=== PATIENT | male | born 1960 | race Caucasian/White ===

== ENCOUNTER 2021-07-18 17:15 | Inpatient (IN) ==
--- NOTE | 2021-07-18 18:02 | Emergency Department Note ---
History of Present Illness General Chief complaint: Referred by Doctor Stated complaint: NEED CHECKED FOR BLOOD CLOT, SHORTNESS OF BREATH Time Seen by Provider: 07/18/21 17:45 History of Present Illness Maximum Pain Intensity: 5 This is a 61-year-old male that presents to the emergency department via private vehicle accompanied by [facility] counselor with complaints of "need checked for blood clot, shortness of breath". Patient notes that about 8 months ago while in [place] he was diagnosed with a DVT to the right lower extremity as well as PE. Patient notes that he was admitted and received IV heparin. He notes that he also underwent procedure to remove clot from the right leg. He states that he was then discharged home on oral Eliquis. He has been compliant with his medication. He has not missed any doses. Patient states that he is currently at [facility] rehabilitation secondary to alcoholism. He last drank alcohol about a week and a half ago. He then states that beginning about 2-4 days ago he began with edema to the right lower extremity. He notes this was identical to how his initial DVT presented. He also notes that over the past few days he has felt exertional dyspnea. He notes that this is also similar to how he felt when he was first diagnosed with a PE/DVT. He was referred here for further evaluation and management. Patient notes his current discomfort in the right lower extremity is a 5/10. No recent trauma or injury. He again denies missing any doses of the Eliquis. Patient notes a history of back surgery, hypertension, and PE/DVT Home Medications Medication Instructions Recorded Confirmed Type albuterol sulfate 90 mcg/actuation 2 puff INHALATION Q4H PRN 07/19/21 07/19/21 History aerosol inhaler amlodipine 5 mg tablet 5 mg PO DAILY 07/19/21 07/19/21 History apixaban 5 mg tablet (Eliquis) 5 mg PO BID 07/19/21 07/19/21 History clonidine HCl 0.1 mg tablet 0.1 mg PO TID PRN 07/19/21 07/19/21 History cyanocobalamin (vitamin B-12) 1,000 mcg PO DAILY 07/19/21 07/19/21 History 1,000 mcg tablet diazepam 5 mg tablet See Rx Instructions .ROUTE .COMPLEX 07/19/21 07/19/21 History diphenhydramine HCl 25 mg capsule 25 mg PO Q6H PRN 07/19/21 07/19/21 History (Benadryl) folic acid 1 mg tablet 1 mg PO DAILY 07/19/21 07/19/21 History gabapentin 400 mg capsule 400 mg PO TID 07/19/21 07/19/21 History hydroxyzine pamoate 50 mg capsule 50 mg PO TID PRN 07/19/21 07/19/21 History lisinopril 10 mg tablet 10 mg PO DAILY 07/19/21 07/19/21 History melatonin 5 mg tablet 5 mg PO HS PRN 07/19/21 07/19/21 History multivitamin 1 tab PO DAILY 07/19/21 07/19/21 History nicotine 14 mg/24 hr daily 14 mg TRANSDERMAL DAILY PRN 07/19/21 07/19/21 History transdermal patch olanzapine 5 mg tablet 5 mg PO DAILY 07/19/21 07/19/21 History omeprazole 20 mg capsule,delayed 20 mg PO DAILY 07/19/21 07/19/21 History release thiamine HCl (vitamin B1) 100 mg 100 mg PO DAILY 07/19/21 07/19/21 History tablet trazodone 100 mg tablet 100 mg PO HS PRN 07/19/21 07/19/21 History venlafaxine 37.5 mg 37.5 mg PO DAILY 07/19/21 07/19/21 History capsule,extended release 24 hr Allergies Allergy/AdvReac Type Severity Reaction Status Date / Time pregabalin [From Lyrica] Allergy Unknown Verified 07/19/21 03:45 Past Med/Surg History Medical History (Updated 07/19/21 @ 05:14 by Dirk Barber MD) Back pain HTN (hypertension) Hx of deep venous thrombosis Hx pulmonary embolism Surgical History Hx of spinal surgery Social History Smoking Status: Heavy tobacco smoker Tobacco Type: Cigarettes Second Hand Exposure: No; Do You Dip or Chew Tobacco: No; Tobacco Cessation Education Requested by Patient: No Hx Alcohol Use: Yes Hx Substance Use: No Preferred Language: Hungarian Communication Ability: Effective Hospital Receptionist Required: No Beliefs That Will Affect Care: None Current Living Situation: Boarding Home Other Information That Helps Us Care for You: No Feels Safe at Home: No Is there a partner from a previous relationship who is making you feel unsafe now?: No Any Concerns about Your Family Situation: No Would You Like to Speak to Someone About Your Situation: No Assistive Devices: None Review of Systems A total of 10 systems reviewed and were otherwise negative Physical Exam Vital Signs Vital Signs - 24 hr 07/18/21 17:18 07/18/21 19:46 07/18/21 21:31 Temperature 37.3 C Temperature Source Oral Pulse Rate 102 H 75 Pulse Rate [Finger] 75 68 Pulse Rhythm Regular Respiratory Rate 18 18 24 Respiratory Effort / Characteristics Non-Labored Spontaneous Non-Labored Spontaneous Respiratory Depth Normal Normal Blood Pressure 166/98 H Blood Pressure [Left Arm] 164/104 H 160/107 H Blood Pressure Mean 120 Blood Pressure Mean [Left Arm] 124 124 Blood Pressure Position [Left Arm] Sitting Sitting Pulse Oximetry 96 96 97 Oxygen Delivery Method Room Air Room Air Sepsis Recent Fever Within 48 Hours No Sepsis New/Unexplained Change in Mental Status N/A Sepsis Action Taken by Nursing No Action Required VITAL SIGNS - Vital signs and nursing notes were reviewed. Hypertensive, otherwise stable. GENERAL -61-year-old male appearing his stated age who is in no acute distress. Communicates well with provider and answers questions appropriately. SKIN -diffuse circumferential edema noted to the right lower extremity most pronounced distal to the right knee. The integument does have a shiny appearance and the integument does have a reddish/purplish hue. The circumference of the right lower extremity is larger than that of the left. HEAD - NC/AT. EYES - Sclera anicteric. NECK - Neck with FROM. No nuchal rigidity. LUNGS - Chest wall symmetric without accessory muscle use, intercostals retractions, or central cyanosis. Normal vesicular breath sounds CTA B/L. No wheezes, rales, or rhonchi appreciated. CARDIAC - RRR with S1/S2. No murmur, rubs, or gallops appreciated. EXTREMITIES - No clubbing or peripheral cyanosis. Skin as above. He is tender throughout the right lower extremity without evidence of neurovascular compromise. Cap refill of all toes of the right lower extremity within normal limits. No fluctuance or evidence of abscess. No lymphangitic streaking. Right dorsalis pedis pulse intact. +5/5 strength noted in UE/LE bilaterally. NEUROLOGIC - Cranial nerves II through XII grossly intact. PSYCH - A&O, and cooperates fully with examiner. Pt is very pleasant and interacts well with examiner. Course Administered Medications Acetaminophen (Acetaminophen 325 Mg Tab) 650 mg PO Q4H PRN PRN Reason: pain/fever Stop: 08/17/21 22:27 Last Admin: 07/19/21 02:26 Dose: 650 mg Documented by: [id number] Amlodipine Besylate (Amlodipine Besylate 5 Mg Tab) 5 mg PO DAILY [facility] Stop: 08/18/21 08:59 Last Admin: 07/19/21 08:04 Dose: 5 mg Documented by: [id number] Cyanocobalamin (Cyanocobalamin (B-12) 500 Mcg Tablet) 1,000 mcg PO DAILY [facility] Stop: 08/18/21 08:59 Last Admin: 07/19/21 08:04 Dose: 1,000 mcg Documented by: [id number] Diazepam (Diazepam 5 Mg Tablet) 5 mg PO TID [facility] Stop: 07/21/21 08:59 Last Admin: 07/19/21 08:03 Dose: 5 mg Documented by: [id number] Enoxaparin Sodium (Enoxaparin Inj 120 Mg/0.8 Ml Syr) 111 mg SQ Q12H [facility] Stop: 08/18/21 08:59 Last Admin: 07/19/21 10:11 Dose: 111 mg Documented by: [id number] Folic Acid (Folic Acid 1 Mg Tab) 1 mg PO DAILY [facility] Stop: 07/30/21 09:01 Last Admin: 07/19/21 08:04 Dose: 1 mg Documented by: [id number] Gabapentin (Gabapentin 400 Mg Cap) 400 mg PO TID [facility] Stop: 08/18/21 08:59 Last Admin: 07/19/21 08:04 Dose: 400 mg Documented by: [id number] Hydroxyzine HCl (Hydroxyzine Hcl 25 Mg Tab) 50 mg PO TID PRN PRN Reason: Anxiety Stop: 08/18/21 05:09 Last Admin: 07/19/21 09:10 Dose: 50 mg Documented by: [id number] Lisinopril (Lisinopril 10 Mg Tab) 10 mg PO DAILY [facility] Stop: 08/18/21 08:59 Last Admin: 07/19/21 08:03 Dose: 10 mg Documented by: [id number] Miscellaneous (Remove Nicoderm Patch) 1 ea N/A QAM [facility] Stop: 08/18/21 08:59 Last Admin: 07/19/21 08:04 Dose: 1 ea Documented by: [id number] Multivitamins (Multivitamin Tab) 1 tab PO DAILY NATHALIE Stop: 08/18/21 08:59 Last Admin: 07/19/21 08:04 Dose: 1 tab Documented by: [id number] Nicotine (Nicotine 14 Mg/24 Hr Patch) 14 mg TD DAILY PRN PRN Reason: Smoking Cessation Stop: 08/18/21 05:45 Last Admin: 07/19/21 08:03 Dose: 14 mg Documented by: [id number] Olanzapine (Olanzapine 5 Mg Tablet) 5 mg PO DAILY [facility] Stop: 08/18/21 08:59 Last Admin: 07/19/21 08:04 Dose: 5 mg Documented by: [id number] Pantoprazole Sodium (Pantoprazole 40 Mg Tab) 40 mg PO DAILY [facility] Stop: 08/18/21 08:59 Last Admin: 07/19/21 08:04 Dose: 40 mg Documented by: [id number] Thiamine HCl (Thiamine Hcl 100 Mg Tab) 100 mg PO DAILY [facility] Stop: 07/30/21 09:01 Last Admin: 07/19/21 08:04 Dose: 100 mg Documented by: [id number] Venlafaxine HCl (Venlafaxine Hcl Xr 37.5 Mg Capxr) 37.5 mg PO DAILY [facility] Stop: 08/18/21 08:59 Last Admin: 07/19/21 08:04 Dose: 37.5 mg Documented by: [id number] Discontinued Medications Acetaminophen (Acetaminophen 500 Mg Tab) 1,000 mg PO ONCE ONE Stop: 07/19/21 08:12 Last Admin: 07/19/21 08:22 Dose: 1,000 mg Documented by: [id number] Albuterol (Albut/Ipratrop 3mg/0.5mg Neb 3 Ml Vial) 3 ml NEB Q8H NATHLAIE; Protocol Stop: 08/18/21 00:14 Last Admin: 07/19/21 00:35 Dose: Not Given Documented by: [id number] Albuterol (Albut/Ipratrop 3mg/0.5mg Neb 3 Ml Vial) 3 ml NEB NOW STA; Protocol Stop: 07/19/21 00:06 Last Admin: 07/19/21 00:33 Dose: 3 ml Documented by: [id number] Albuterol (Albut/Ipratrop 3mg/0.5mg Neb 3 Ml Vial) 3 ml NEB Q8R [facility]; Protocol Stop: 08/18/21 06:59 Last Admin: 07/19/21 07:26 Dose: 3 ml Documented by: [id number] Apixaban (Apixaban 5 Mg Tablet) 5 mg PO NOW STA Stop: 07/18/21 22:11 Last Admin: 07/18/21 22:30 Dose: 5 mg Documented by: [id number] Ioversol (Optiray 320 125ml) 120 ml IV ONCE ONE Stop: 07/18/21 21:09 Last Admin: 07/18/21 21:08 Dose: 120 ml Documented by: [id number] Ketorolac Tromethamine (Ketorolac 30 Mg/Ml Vial) 30 mg IV NOW ONE Stop: 07/19/21 08:11 Last Admin: 07/19/21 08:22 Dose: 30 mg Documented by: [id number] Lorazepam (Lorazepam 0.5 Mg Tab) 0.5 mg PO NOW STA Stop: 07/18/21 23:07 Last Admin: 07/18/21 23:42 Dose: 0.5 mg Documented by: [id number] Morphine Sulfate (Morphine Sulfate 4 Mg/Ml 1 Ml Carp\\Vial) 4 mg IV NOW STA Stop: 07/18/21 20:59 Last Admin: 07/18/21 21:11 Dose: 4 mg Documented by: [id number] Medical Decision Making Laboratory Data Result diagrams: 07/19/21 06:13 07/19/21 06:13 Lab Results 07/18/21 07/18/21 07/18/21 Range/Units 18:10 19:00 19:00 WBC 8.68 (4.8-10.8) K/uL RBC 3.93 L (4.7-6.1) M/uL Hgb 12.5 L (14.0-18.0) g/dL Hct 36.7 L (42-52) % MCV 93.4 (80-100) fL MCH 31.8 (25-34) pg MCHC 34.1 (32-36) g/dL RDW Std Deviation 49.1 H (36.4-46.3) fL RDW Coeff of Meeta 14.2 (11.5-14.5) % Plt Count 304 (130-400) K/uL MPV 8.9 (7.4-10.4) fL Immature Gran % (Auto) 0.3 % Neut % (Auto) 61.9 % Lymph % (Auto) 28.5 % [place] % (Auto) 6.9 % Eos % (Auto) 2.2 % Baso % (Auto) 0.2 % Neut # (Auto) 5.37 (1.4-6.5) K/uL Lymph # (Auto) 2.47 (1.2-3.4) K/uL [place] # (Auto) 0.60 H (0.11-0.59) K/uL Eos # (Auto) 0.19 (0-0.5) K/uL Baso # (Auto) 0.02 (0-0.2) K/uL Immature Gran # (Auto) 0.03 H (0.00-0.02) K/uL PT 10.8 (9.0-12.0) Seconds INR 1.0 (0.9-1.1) APTT 21.5 (21.0-31.0) Seconds PTT Ratio 0.8 Sodium (136-145) mmol/L Potassium (3.5-5.1) mmol/L Chloride (98-107) mmol/L Carbon Dioxide (21-32) mmol/L Anion Gap (3-11) BUN (6-23) mg/dl Creatinine (0.6-1.4) mg/dl Est Cr Clr Drug Dosing ml/min Est GFR ( Amer) ml/min Est GFR (Non-Af Amer) ml/min BUN/Creatinine Ratio (10-20) Glucose (70-99(Fasting)) mg/dl Calcium (8.5-10.1) mg/dl Total Bilirubin (0.2-1.0) mg/dl AST (13-39) U/L ALT (7-52) U/L Alkaline Phosphatase (34-104) U/L Troponin I High Sens (0-20) pg/ml Total Protein (6.0-8.3) gm/dl Albumin (3.4-5.0) gm/dl Globulin (2.5-4.0) gm/dl Albumin/Globulin Ratio (0.9-2) SARS-CoV-2, RNA, NAAT NEGATIVE (NEGATIVE) 07/18/21 Range/Units 19:00 WBC (4.8-10.8) K/uL RBC (4.7-6.1) M/uL Hgb (14.0-18.0) g/dL Hct (42-52) % MCV (80-100) fL MCH (25-34) pg MCHC (32-36) g/dL RDW Std Deviation (36.4-46.3) fL RDW Coeff of Meeta (11.5-14.5) % Plt Count (130-400) K/uL MPV (7.4-10.4) fL Immature Gran % (Auto) % Neut % (Auto) % Lymph % (Auto) % [place] % (Auto) % Eos % (Auto) % Baso % (Auto) % Neut # (Auto) (1.4-6.5) K/uL Lymph # (Auto) (1.2-3.4) K/uL [place] # (Auto) (0.11-0.59) K/uL Eos # (Auto) (0-0.5) K/uL Baso # (Auto) (0-0.2) K/uL Immature Gran # (Auto) (0.00-0.02) K/uL PT (9.0-12.0) Seconds INR (0.9-1.1) APTT (21.0-31.0) Seconds PTT Ratio Sodium 137 (136-145) mmol/L Potassium 3.9 (3.5-5.1) mmol/L Chloride 102 (98-107) mmol/L Carbon Dioxide 23 (21-32) mmol/L Anion Gap 12 H (3-11) BUN 13 (6-23) mg/dl Creatinine 1.07 (0.6-1.4) mg/dl Est Cr Clr Drug Dosing 92.9 ml/min Est GFR ( Amer) 86.4 ml/min Est GFR (Non-Af Amer) 74.5 ml/min BUN/Creatinine Ratio 12.1 (10-20) Glucose 96 (70-99(Fasting)) mg/dl Calcium 9.3 (8.5-10.1) mg/dl Total Bilirubin 0.3 (0.2-1.0) mg/dl AST 21 (13-39) U/L ALT 20 (7-52) U/L Alkaline Phosphatase 94 (34-104) U/L Troponin I High Sens 5.4 (0-20) pg/ml Total Protein 6.9 (6.0-8.3) gm/dl Albumin 4.3 (3.4-5.0) gm/dl Globulin 2.6 (2.5-4.0) gm/dl Albumin/Globulin Ratio 1.7 (0.9-2) SARS-CoV-2, RNA, NAAT (NEGATIVE) Imaging Data Radiologist's Impression: Chest CTA 07/18/21 17:58 CT ANGIOGRAM OF THE CHEST CLINICAL HISTORY: Dyspnea COMPARISON STUDY: No priors. TECHNIQUE: Following the IV administration of 120 cc of Optiray 320, CT angiogram of the chest was performed from the upper abdomen to the thoracic inlet utilizing the pulmonary embolus protocol. Images are reviewed in the axial, sagittal, and coronal planes. 3-D MIPS images are created and assessed. IV contrast was administered without complication. A dose lowering technique was utilized adhering to the principles of ALARA. CT DOSE: 552.60 mGy.cm FINDINGS: Thyroid: Imaged portions of the thyroid gland are normal in size and attenuation. Thoracic aorta: There is mild atherosclerotic calcification of the thoracic aorta, which is normal in caliber and demonstrates 4-vessel variant arch anatomy. There is moderate stenosis of the left subclavian artery below the thoracic outlet seen on image #206. No dissection is seen. Pulmonary vasculature: The pulmonary trunk is normal in caliber. There are no filling defects identified in main, lobar, or segmental pulmonary branches to suggest pulmonary embolus. Heart: The heart is normal in size and without pericardial effusion. There are c oronary artery calcifications. Lungs and pleural spaces: There is no airspace consolidation typical for pneumonia or pleural effusion. Foci of scarring/atelectasis are seen throughout both lungs. The trachea and central airways are clear. Diffuse peribronchial thickening is observed with mucous plugging seen in the lower lobe airways. Mediastinum: There is no mediastinal lymphadenopathy. Vanesa: Clear. Axillae: There is no axillary lymphadenopathy. Upper abdomen: There is a 12 mm ovoid simple cystic lesion in the distal pancreatic body/tail on image #18. Scattered diverticula are noted in the partially imaged left colon. Skeletal structures: No lytic or blastic bony lesions are seen. Intrathecal leads are noted in the lower thoracic spinal canal. Degenerative change is noted in the shoulders and thoracic spine. IMPRESSION: 1. There is no evidence of pulmonary embolus in the main, lobar, or segmental pulmonary arteries. 2. There is no lobar consolidation or pleural effusion. 3. Diffuse peribronchial thickening suggests bronchitis/reactive airway disease. Clinical correlation will be required. 4. There is a 12 mm simple cystic lesion in the distal pancreas, likely representing a sidebranch IPMN. Consider nonemergent/outpatient GI follow-up. 5. Additional findings as above. ACT 112: Negative or not required by law. Electronically signed by: Arik Mathews M.D. 07/18/2021 9:22 PM Venous Doppler Study 07/18/21 17:58 RIGHT LOWER EXTREMITY VENOUS DOPPLER CLINICAL HISTORY: hx dvt 8 months ago, on eliquis, edema x 4days COMPARISON STUDY: No previous studies for comparison. TECHNIQUE: Sonography of the deep venous system of the right lower extremity was performed. Compression and augmentation were evaluated. FINDINGS: Right common femoral vein is patent. Note is made of wall thickening of the right superficial femoral and popliteal veins. This represents nonocclusive thrombus. Although age indeterminate, the appearance favors chronic thrombus. Augmentation was normal. Flow was shown within the deep calf vessels. IMPRESSION: Nonocclusive deep venous thrombus within the right superficial femoral and popliteal veins. Although technically age indeterminate, the appearance favors chronic thrombus. ACT 112: Negative or not required by law. Electronically signed by: Flaco Rodriguez M.D. 07/18/2021 8:36 PM MDM Narrative Patient was seen and evaluated as above in room D09. Review was performed of nursing notes and vital signs. I did review the accompanying documentation as provided by [facility] regarding the patient's medical history and physical examination. After obtaining a thorough history and physical examination the above work up was performed. Patient presents to us today with right lower extremity edema and exertional dyspnea which he notes is new. He notes that he had identical symptoms about 8 months ago when he was first diagnosed with PE/DVT. He notes that he is currently on Eliquis. He notes he has been compliant with this medication and has not missed any doses. The patient does not know the etiology of his PE/DVT 8 months ago. Options of care were discussed with the patient. IV access was established. Labs were drawn. CTA of the chest as well as right lower extremity DVT study ordered. Labs reveal no leukocytosis. Minor anemia noted with hemoglobin of 12.5. There is no emergent metabolic disturbance. Troponin 5.4 and within normal range. COVID testing is negative. Coags are normal. Ultrasound as above. There is comment of a nonocclusive DVT within the right superficial femoral and popliteal veins. Although technically age-indeterminate, the appearance favors chronic thrombus per radiology. Prior to going to the CT suite he noted increasing right lower extremity discomfort. A one-time dose of IV morphine was ordered. CT of the chest does not reveal any evidence of PE. There is comment of diffuse peribronchial thickening suggest bronchitis/reactive airway disease. The patient at this time I do believe would benefit from further evaluation and management in the inpatient setting noting his progressive right lower extremity edema by history over the past few days despite anticoagulant therapy. Case discussed with the attending physician as well as the hospitalist. Pending evaluation by the hospitalist service I did discuss with the hospitalist whether or not they would like me to order the patient's nighttime dose of Eliquis that he is due for at this current time. Hospitalist service had indicated it would be reasonable to proceed with his 5 mg dose as due. I did order him his scheduled 5 mg dose of Eliquis pending evaluation by the hospitalist service. Please refer to further documentation regarding his stay. Counselor from [facility] did provide a contact phone number of [phone] which is the direct nurse line for [facility] if the need would arise. While in the department, I personally reevaluated the patient several times and each time the patient was found to be resting comfortably. EKG was reviewed by myself and found to have artifact which limits fine detail. This appears to be a normal sinus rhythm at a rate of 90 bpm. QTc 455. QRS 70. No ST elevation. No previous for comparison. An order was placed for continuous cardiac monitoring. The monitor shows a rate of 75 with sinus rhythm GCS: 15 In the evaluation and treatment of this patient, the following differential diagnoses were considered: SC, ASC, Dysrhythmia, Angina, Mediastinitis, GERD, Esophagitis, PE, Pneumonia, Bronchitis, Costochondritis, Rib Fracture, Zoster, DVT, among others Impression & Plan DVT (deep venous thrombosis), Edema of right lower extremity, Acute pain of right lower extremity, WOLF (dyspnea on exertion) Discharge Plan Visit Data Chief Complaint: Referred by Doctor Stated Complaint: NEED CHECKED FOR BLOOD CLOT, SHORTNESS OF BREATH ED Provider: Arik Mahoney ED Midlevel Provider: Kartik Hernandez Discharge Problem: DVT (deep venous thrombosis), Edema of right lower extremity, Acute pain of right lower extremity, WOLF (dyspnea on exertion) Patient Disposition: Admitted As Inpatient Condition: Good Discharge Instructions Interventions: ED Discharge Assessment Last Done: 07/18/21 22:53
[2021-07-18 19:28] LABS: Basophils # (auto) 0.02 K/uL (0-0.2); Basophils % (auto) 0.2 %; Eosinophils # (auto) 0.19 K/uL (0-0.5); Eosinophils % (auto) 2.2 %; Hematocrit (blood only) 36.7 % (42-52); Hemoglobin 12.5 g/dL (14.0-18.0); Immature Granulocytes # (auto) 0.03 K/uL (0.00-0.02); Immature Granulocytes % (auto) 0.3 %; Lymphocytes # (auto) 2.47 K/uL (1.2-3.4); Lymphocytes % (auto) 28.5 %; Mean Corpuscular Hemoglobin 31.8 pg (25-34); Mean Corpuscular Hgb Conc 34.1 g/dL (32-36); Mean Corpuscular Volume 93.4 fL (80-100); Mean Platelet Volume 8.9 fL (7.4-10.4); Monocytes % (auto) 6.9 %; Neutrophils # (auto) 5.37 K/uL (1.4-6.5); Neutrophils % (auto) 61.9 %; Partial Thromboplastin Ratio 0.8; Partial Thromboplastin Time 21.5 Seconds (21.0-31.0); Platelet Count 304 K/uL (130-400); Prothrombin Time 10.8 Seconds (9.0-12.0); RDW Coefficient of Variation 14.2 % (11.5-14.5); RDW Standard Deviation 49.1 fL (36.4-46.3); Red Blood Count 3.93 M/uL (4.7-6.1); White Blood Count 8.68 K/uL (4.8-10.8)
[2021-07-18 19:52] LABS: Troponin I High Sensitivity 5.4 pg/ml (0-20)
[2021-07-18 20:35] LABS: Albumin Globulin Ratio 1.7 (0.9-2); Albumin Level 4.3 gm/dl (3.4-5.0); BUN Creatinine Ratio 12.1 (10-20); Bilirubin,Total 0.3 mg/dl (0.2-1.0); Calcium 9.3 mg/dl (8.5-10.1); Creatinine Clr Calc Pharmacy 92.9 ml/min; Est GFR (African American) 86.4 ml/min; Est GFR (Non-African American) 74.5 ml/min; Globulin 2.6 gm/dl (2.5-4.0); Potassium 3.9 mmol/L (3.5-5.1); Total Protein 6.9 gm/dl (6.0-8.3)
--- NOTE | 2021-07-18 20:38 | Ultrasound Report ---
RIGHT LOWER EXTREMITY VENOUS DOPPLER CLINICAL HISTORY: hx dvt 8 months ago, on eliquis, edema x 4days COMPARISON STUDY: No previous studies for comparison. TECHNIQUE: Sonography of the deep venous system of the right lower extremity was performed. Compress ion and augmentation were evaluated. FINDINGS: Right common femoral vein is patent. Note is made of wall thickening of the right superfici al femoral and popliteal veins. This represents nonocclusive thrombus. Although age indeterminate, th e appearance favors chronic thrombus. Augmentation was normal. Flow was shown within the deep calf ve ssels. IMPRESSION: Nonocclusive deep venous thrombus within the right superficial femoral and popliteal vein s. Although technically age indeterminate, the appearance favors chronic thrombus. ACT 112: Negative or not required by law. Electronically signed by: Flaco Rodriguez M.D. 07/18/2021 8:36 PM
[2021-07-18] MEDS ORDERED: MoRPHine SULFATE 4 MG/ML 1 ML CARP\\VIAL IV STA (20:58)
[2021-07-18] MEDS ORDERED: OPTIRAY 320 125ml IV ONE (21:08)
--- NOTE | 2021-07-18 21:24 | CT Scan Report ---
CT ANGIOGRAM OF THE CHEST CLINICAL HISTORY: Dyspnea COMPARISON STUDY: No priors. TECHNIQUE: Following the IV administration of 120 cc of Optiray 320, CT angiogram of the chest was pe rformed from the upper abdomen to the thoracic inlet utilizing the pulmonary embolus protocol. Images are reviewed in the axial, sagittal, and coronal planes. 3-D MIPS images are created and assessed. I V contrast was administered without complication. A dose lowering technique was utilized adhering to the principles of ALARA. CT DOSE: 552.60 mGy.cm FINDINGS: Thyroid: Imaged portions of the thyroid gland are normal in size and attenuation. Thoracic aorta: There is mild atherosclerotic calcification of the thoracic aorta, which is normal in caliber and demonstrates 4-vessel variant arch anatomy. There is moderate stenosis of the left subcl natalya artery below the thoracic outlet seen on image #206. No dissection is seen. Pulmonary vasculature: The pulmonary trunk is normal in caliber. There are no filling defects identif ied in main, lobar, or segmental pulmonary branches to suggest pulmonary embolus. Heart: The heart is normal in size and without pericardial effusion. There are coronary artery calcif ications. Lungs and pleural spaces: There is no airspace consolidation typical for pneumonia or pleural effusio n. Foci of scarring/atelectasis are seen throughout both lungs. The trachea and central airways are c lear. Diffuse peribronchial thickening is observed with mucous plugging seen in the lower lobe airway s. Mediastinum: There is no mediastinal lymphadenopathy. Vanesa: Clear. Axillae: There is no axillary lymphadenopathy. Upper abdomen: There is a 12 mm ovoid simple cystic lesion in the distal pancreatic body/tail on imag e #18. Scattered diverticula are noted in the partially imaged left colon. Skeletal structures: No lytic or blastic bony lesions are seen. Intrathecal leads are noted in the lo wer thoracic spinal canal. Degenerative change is noted in the shoulders and thoracic spine. IMPRESSION: 1. There is no evidence of pulmonary embolus in the main, lobar, or segmental pulmonary arteries. 2. There is no lobar consolidation or pleural effusion. 3. Diffuse peribronchial thickening suggests bronchitis/reactive airway disease. Clinical correlation will be required. 4. 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 Consider nonemergent/outpatient GI follow-up. 5. Additional findings as above. ACT 112: Negative or not required by law. Electronically signed by: Arik Mathews M.D. 07/18/2021 9:22 PM
[2021-07-18] MEDS ORDERED: APIXABAN 5 MG TABLET PO STA (22:10)
--- NOTE | 2021-07-18 22:17 | History & Physical Report ---
Date of Service July 18, 2021 Assessment & Plan (1) DVT (deep venous thrombosis): Plan: Denton is a 61-year-old male with history of prior DVT (~10/2020) on Eliquis, AUD and OUD (per [facility]), anxiety/depression, Montez's esophagus, chronic LBP, and COPD who presented to [facility] for evaluation of right lower extremity swelling over the past 2 to 3 days, found to have evidence of DVT in RLE on ultrasonography. 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 the appearance favors chronic thrombus" -- do not have previous US available for comparison - The sudden-onset of symptoms (new swelling, pain) is concerning for acute, rather than chronic, DVT (though previous burden unknonwn) -- lower suspicion for primary process representing lymphedema, no e/o cellulitis, HF - Regarding his anticoagulation: assuming full compliance with his Eliquis, there is current concern for thrombophilia vs. improper absorption (?). However, stimulus unclear. No injury or reported stasis. No prior h/o VTE or FHX. Last colonoscopy was < 2 years ago (unknown findings, but "needs another one soon") - Pain: acetaminophen, heating pads -- judicious use of opioids with ongoing recovery and valium taper outlined below - s/p receipt of Eliquis 5mg in ED --> Transition to Lovenox 100mg SQ b.i.d. given c/f treatment failure - No family or personal history of VTE prior to 10/2020 -- could consider sending off hypercoagulability labs (2) Shortness of breath: Plan: - Known h/o COPD per [facility]'s file -- patient endorses nursing home h/o tobacco use - CT-Chest NOT demonstrating any PEs; did, however, show: "Diffuse peribronchial thickening suggests bronchitis/reactive airway disease" - Given negative work-up for PEs and stable respiratory status, suspect his reported SOB is more likely acute process atop his known COPD -- possibly induced by viral respiratory process. Doesn't appear to be in active COPD exacerbation - COVID negative in the ED - DuoNebs q8h NATHALIE with q4h PRNs -- ween as indicated - Consider azithromycin/doxycycline and short course of steroids if worsening while here - Monitor need for O2, further respiratory therapies/pulmonary toilet can be added prn - Consider addition of antimuscarinic as outpatient for maintenance if true COPD; unclear what work-up has been done to date (3) Opioid use disorder: Plan: - Reported history of OUD on paperwork from [facility] -- patient reports long h/o hydrocodone use for chronic LBP - No h/o IVDU per patient - s/p self-discontinuation of Suboxone several weeks ago -- now receiving withdrawal treatment via [facility] - Continue Vivitrol taper initiated at [facility] (notes reviewed and are on physical hospital chart): - Valium 5mg q.i.d. x 2 days (completed) - Valium 5mg t.i.d. x 2 days (start 07/19) - Valium 5mg b.i.d. x 2 days - Valium 2.5mg b.i.d. x 2 days - Valium 2.5mg daily x 2 days then STOP (4) Pancreatic cyst: Plan: - CT-Chest incidentally demonstrating "12 mm simple cystic lesion in the distal pancreas, 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" - Consider GI consultation as outpatient for EUS / other imaging to clarify cyst architecture, type (5) Alcohol use disorder: Plan: - Long-term history of alcohol abuse beginning at age 16 -- sober between 12/2020 - 03/2021, then relapsed and began drinking 12 beers daily - Per [facility] chart: last drink was 07/13/21 (2 beers) -- prior to this, was "daily drinking of a few beers the past few weeks, not to the point of getting drunk." - Interested in naltrexone for OUD/AUD -- appreciate management by [facility] - Difficult to appreciate if symptoms noticed on admission (anxiety, tremors) are secondary to BZD withdrawal from ongoing Valium taper and Suboxone withdrawal vs. late EtOH withdrawal -- will start AWSS and can discontinue once more information is collected - Continue thiamine, folic acid, vitamin B12, MVI (6) Anxiety and depression: Plan: - Continue venlafaxine ER 37.5mg daily - Continue trazodone 100mg qHS - Continue Zyprexa 5mg daily - Continue PRNs: hydroxyzine - Hold PRN clonidine for now until withdrawal profile is more clearly elucidated -- low threshold to restart (unclear if this was recently started for withdrawal or he takes PRN at baseline) (7) Barretts esophagus: Plan: - Per files from [facility] -- unclear when he had his last EGD - Pantoprazole 20mg daily substitution while here (8) HTN (hypertension): Plan: - Continue lisinopril (9) Back pain: Plan: - Continue gabapentin Plan: Code: Full code Dispo: PPX: therapeutic Lovenox as above Diet: Regular History of Present Illness Primary Care Provider: NO PCP Denton is a 61-year-old male with history of prior DVT (~10/2020) on Eliquis, AUD and OUD (per [facility]), anxiety/depression, Montez's esophagus, chronic LBP who presented to [facility] for evaluation of right lower extremity swelling over the past 2 to 3 days. He also notes SOB on arrival. Patient is very pleasant; obtaining history was somewhat difficult. Patient reports that over the last 2 days, he has noticed progressively increasing swelling within his right lower extremity. This has been associated with a feeling of tightness and warmness. He denies any injury or falls. He says that he has been having mild shortness of breath since this time. Denies any chest pain or palpitations. Denies any nausea or vomiting. Does endorse a mild cough. Does endorse intermittent chills. Declines feeling sick otherwise. He endorses taking his Eliquis as prescribed without any missed doses (he notes that he takes it "religiously" and would never miss a dose). Of note, approximately 8 months ago patient was diagnosed with a right lower extremity DVT as well as PE. He was admitted briefly, where he received IV heparin and underwent (unconfirmed - based on patient's description) right lower extremity thrombectomy. He is currently at [facility] inpatient rehabilitation. He says that he has a terminal manager history of chronic lower back pain following an accident when he was younger. For maintenance of his pain, he was previously being prescribed high doses of hydrocodone. Approx. 3 years ago, was changed to Suboxone. Approximately 1 month ago, he self discontinued Suboxone.. He reported withdrawal symptomsanxiety, feeling shaky, severe bout of anxiety. He attempted treating the symptoms with alcohol4-5 beers a day. Prior to this though, he denied regular drinking. At this point, last drink was approximately 1.5 to 2 weeks ago. He did report having suicidal ideations during this process. He was admitted to [facility] for further monitoring, treatment, and rehabilitation. He denies SI or HI at present. He is no longer on Suboxone. No personal or family history of clotting prior to the events in 10/2020, which - by report - seem unprovoked. In the ED, patient was found to be hemodynamically stable with blood pressure 170/100, pulse 102. Afebrile. Labs notable for anemia 12.5, INR 1, PTT 21.5, normal lytes/renal function. Doppler right lower extremity demonstrated "nonocclusive deep venous thrombosis within the right superficial femoral and popliteal veins. Although technically age-indeterminate, the appearance favors chronic thrombus." CTA chest, obtained for reports of subjective shortness of breath, did not demonstrate evidence of PE; however, did demonstrate diffuse peribronchial thickening suggestive of bronchitis/reactive airway disease, as well as a 12 mm simple pancreatic cystic lesion, likely corporate representative of IPMN. He was given a single dose of morphine, as well as p.m. dose of Eliquis 5 mg Allergies Allergy/AdvReac Type Severity Reaction Status Date / Time pregabalin [From Lyrica] Allergy Unknown Verified 07/19/21 03:45 Home Medications Medication Instructions Recorded Confirmed Type albuterol sulfate 90 mcg/actuation 2 puff INHALATION Q4H PRN 07/19/21 07/19/21 History aerosol inhaler amlodipine 5 mg tablet 5 mg PO DAILY 07/19/21 07/19/21 History apixaban 5 mg tablet (Eliquis) 5 mg PO BID 07/19/21 07/19/21 History clonidine HCl 0.1 mg tablet 0.1 mg PO TID PRN 07/19/21 07/19/21 History cyanocobalamin (vitamin B-12) 1,000 mcg PO DAILY 07/19/21 07/19/21 History 1,000 mcg tablet diazepam 5 mg tablet See Rx Instructions .ROUTE .COMPLEX 07/19/21 07/19/21 History diphenhydramine HCl 25 mg capsule 25 mg PO Q6H PRN 07/19/21 07/19/21 History (Benadryl) folic acid 1 mg tablet 1 mg PO DAILY 07/19/21 07/19/21 History gabapentin 400 mg capsule 400 mg PO TID 07/19/21 07/19/21 History hydroxyzine pamoate 50 mg capsule 50 mg PO TID PRN 07/19/21 07/19/21 History lisinopril 10 mg tablet 10 mg PO DAILY 07/19/21 07/19/21 History melatonin 5 mg tablet 5 mg PO HS PRN 07/19/21 07/19/21 History multivitamin 1 tab PO DAILY 07/19/21 07/19/21 History nicotine 14 mg/24 hr daily 14 mg TRANSDERMAL DAILY PRN 07/19/21 07/19/21 History transdermal patch olanzapine 5 mg tablet 5 mg PO DAILY 07/19/21 07/19/21 History omeprazole 20 mg capsule,delayed 20 mg PO DAILY 07/19/21 07/19/21 History release thiamine HCl (vitamin B1) 100 mg 100 mg PO DAILY 07/19/21 07/19/21 History tablet trazodone 100 mg tablet 100 mg PO HS PRN 07/19/21 07/19/21 History venlafaxine 37.5 mg 37.5 mg PO DAILY 07/19/21 07/19/21 History capsule,extended release 24 hr Past Med/Surg History Medical History (Updated 07/19/21 @ 05:14 by Dirk Barber MD) Back pain HTN (hypertension) Hx of deep venous thrombosis Hx pulmonary embolism Surgical History Hx of spinal surgery Social History Smoking Status: Heavy tobacco smoker Tobacco Type: Cigarettes Second Hand Exposure: No; Do You Dip or Chew Tobacco: No; Tobacco Cessation Education Requested by Patient: No Hx Alcohol Use: Yes Hx Substance Use: No Preferred Language: Somali Communication Ability: Effective Shaker Flatwork Required: No Beliefs That Will Affect Care: None Current Living Situation: Boarding Home Other Information That Helps Us Care for You: No Feels Safe at Home: No Is there a partner from a previous relationship who is making you feel unsafe now?: No Any Concerns about Your Family Situation: No Would You Like to Speak to Someone About Your Situation: No Assistive Devices: None Review of Systems Review of Systems: as per HPI Physical Exam Physical Exam: General: 61-year old male who is alert, oriented, and appears anxious with bilateral upper extremity tremor. HEENT: NCAT. - Eyes - Sclera are white, anicteric, and without injection. - Mouth - MMM - Neck - supple, no appreciable JVD Cardiac: Normal rate and regular rhythm; S1 and S2 present with no murmurs, rubs, or gallops. Pulmonary: Good respiratory effort with symmetric expansion of the chest. No use of accessory muscles. Diminished lung sounds throughout. Wheezing noted in the bibasilar segments. No crackles. Abdominal: Normoactive bowel sounds. Abdomen was soft, nondistended, and non- tender to palpation. Extremities: Upper and lower extremities are warm and well perfused. Appreciable enlargement of RLE when compared to L side. 1+ pitting edema. DP pulses 2+ bilaterally. Capillary refill < 2 seconds. Ankle strength 5/5. Results & Data Results & Data ([facility]) Vital Signs (Past 12 Hours) Vital Signs Temp Pulse Pulse Resp BP BP Pulse Ox 07/18/21 21:31 68 24 160/107 H 97 07/18/21 19:46 75 75 18 164/104 H 96 07/18/21 17:18 37.3 C 102 H 18 166/98 H 96 Supervising Physician Co-Signing Physician Notes Attending addendum: I have physically seen this patient, have supervised the medical residents activities, and agree with the H&P unless as otherwise noted. Assessment and Plan: Right lower extremity DVT- History of right lower extremity DVT/PE 11/12 Thrombectomy of right lower extremity DVT and treatment with Eliquis 5 mg twice daily Patient reports being compliant with Eliquis, with some which would suggest light Eliquis failure, however, with his coexistent medical issues, it is unclear if he actually remembered to take it on a regular basis Patient has history of opioid use disorder, which he reports was only oral medications, and not injectables. There is still would be concern regarding prescribing Lovenox if this is considered treatment failure Will consult hematology for their opinion COPD/tobacco use/PE history- CTA negative for PE this admission Duonebs every 4 hours while awake and every 2 hours when necessary. Mucinex Azithromycin Avoid use of any potentially addicting substances such as benzodiazepines and narcotics, due to patient's abuse history Remaining orders and notations as noted Resident Activity Tracking Resident Involvement: Resident Care Provided Care Provided: Adult Hospital Medicine
[2021-07-18] MEDS ORDERED: LORazepam 0.5 MG TAB PO STA (23:06)
[2021-07-18] MEDS ORDERED: ALBUT/IPRATROP 3MG/0.5MG NEB 3 ML VIAL NEB PRN (23:08)
[2021-07-19] MEDS ORDERED: LORazepam 2 MG/1 ML VIAL IV PRN ×4 (00:01→17:35)
[2021-07-19] MEDS ORDERED: ALBUT/IPRATROP 3MG/0.5MG NEB 3 ML VIAL NEB PRN (00:05)
[2021-07-19] MEDS ORDERED: ALBUT/IPRATROP 3MG/0.5MG NEB 3 ML VIAL NEB STA (00:05)
[2021-07-19] MEDS ORDERED: ALBUT/IPRATROP 3MG/0.5MG NEB 3 ML VIAL NEB SCH ×2 (00:15→07:00)
[2021-07-19] MEDS: ACETAMINOPHEN 325 MG TAB PO PRN (02:26)
[2021-07-19] MEDS ORDERED: ALBUTEROL HFA 8 GM INHALER INH PRN (05:10)
[2021-07-19] MEDS ORDERED: diphenhydrAMINE Capsule 25 MG CAP PO PRN (05:10)
[2021-07-19] MEDS ORDERED: NICOTINE 14 MG/24 HR PATCH TD PRN (05:46)
[2021-07-19 06:56] LABS: Basophils # (auto) 0.03 K/uL (0-0.2); Basophils % (auto) 0.5 %; Eosinophils # (auto) 0.24 K/uL (0-0.5); Eosinophils % (auto) 3.8 %; Hematocrit (blood only) 37.5 % (42-52); Hemoglobin 12.7 g/dL (14.0-18.0); Immature Granulocytes # (auto) 0.01 K/uL (0.00-0.02); Immature Granulocytes % (auto) 0.2 %; Lymphocytes # (auto) 1.95 K/uL (1.2-3.4); Lymphocytes % (auto) 30.5 %; Mean Corpuscular Hemoglobin 32.6 pg (25-34); Mean Corpuscular Hgb Conc 33.9 g/dL (32-36); Mean Corpuscular Volume 96.4 fL (80-100); Mean Platelet Volume 8.9 fL (7.4-10.4); Monocytes # (auto) 0.56 K/uL (0.11-0.59); Monocytes % (auto) 8.8 %; Neutrophils % (auto) 56.2 %; Platelet Count 297 K/uL (130-400); RDW Coefficient of Variation 14.3 % (11.5-14.5); RDW Standard Deviation 50.9 fL (36.4-46.3); Red Blood Count 3.89 M/uL (4.7-6.1); White Blood Count 6.39 K/uL (4.8-10.8)
[2021-07-19 07:18] LABS: BUN Creatinine Ratio 15.5 (10-20); Calcium 9.3 mg/dl (8.5-10.1); Creatinine Clr Calc Pharmacy 89.9 ml/min; Est GFR (African American) 83.5 ml/min; Est GFR (Non-African American) 72.1 ml/min; Potassium 3.7 mmol/L (3.5-5.1)
[2021-07-19] MEDS: lisinopril 10 MG TAB PO SCH (08:03)
[2021-07-19] MEDS: traZODone HCL 100 MG TAB PO PRN (08:03)
[2021-07-19] MEDS: diazePAM 5 MG TABLET PO SCH ×2 (08:03→13:22)
[2021-07-19] MEDS: OLANZapine 5 MG TABLET PO SCH (08:04)
[2021-07-19] MEDS: CYANOCOBALAMIN (B-12) 500 MCG TABLET PO SCH (08:04)
[2021-07-19] MEDS: MULTIVITAMIN TAB PO SCH (08:04)
[2021-07-19] MEDS: amLODIPine BESYLATE 5 MG TAB PO SCH (08:04)
[2021-07-19] MEDS: PANTOprazole 40 MG TAB PO SCH (08:04)
[2021-07-19] MEDS: FOLIC ACID 1 MG TAB PO SCH (08:04)
[2021-07-19] MEDS: THIAMINE HCL 100 MG TAB PO SCH (08:04)
[2021-07-19] MEDS: VENLAFAXINE HCL XR 37.5 MG CAPXR PO SCH (08:04)
[2021-07-19] MEDS: GABAPENTIN 400 MG CAP PO SCH ×3 (08:04→20:33)
[2021-07-19] MEDS ORDERED: KETOROLAC 30 MG/ML VIAL IV ONE (08:10)
[2021-07-19] MEDS ORDERED: ACETAMINOPHEN 500 MG TAB PO ONE (08:11)
[2021-07-19] MEDS ORDERED: FOLIC ACID 1 MG in SYRINGE 9.8 ML IV SCH (09:00)
[2021-07-19] MEDS ORDERED: THIAMINE HCL 100 MG in SYRINGE 9 ML IV SCH (09:00)
[2021-07-19] MEDS: hydrOXYzine HCl 25 MG TAB PO PRN (09:10)
--- NOTE | 2021-07-19 09:20 | Electrocardiogram Report ---
Test Reason : Blood Pressure : / mmHG Vent. Rate : 090 BPM Atrial Rate : 089 BPM P-R Int : 000 ms QRS Dur : 070 ms QT Int : 372 ms P-R-T Axes : 000 033 074 degrees QTc Int : 455 ms Poor data quality, interpretation may be adversely affected Marked baseline artifact Probable Sinus rhythm Borderline ECG No previous ECGs available Confirmed by Bolivar Hunt ([id number]) on 07/19/2021 9:20:24 AM Referred By: Marco Fitzgerald Confirmed By:Bolivar Hunt
[2021-07-19] MEDS ORDERED: ENOXAPARIN 100 MG/1ML SYR SQ SCH (10:00)
[2021-07-19] MEDS: ENOXAPARIN INJ 120 MG/0.8 ML SYR SQ SCH ×2 (10:11→20:33)
[2021-07-19] MEDS: ALBUTEROL HFA 8 GM INHALER INH SCH ×2 (15:43→22:03)
[2021-07-19] MEDS ORDERED: LORazepam 2 MG/1 ML VIAL IV STA ×2 (15:45→16:19)
--- NOTE | 2021-07-19 16:12 | Hospitalist Progress Note ---
Date of Service July 19, 2021 Assessment & Plan (1) Alcohol withdrawal: Plan: Patient's severe tremors, tachycardia, anxiety, etc all concerning for ongoing etoh withdrawal. If the records are correct he is still going thru withdrawal from etoh as his last documented drink was 07/13/21. Plan - transfer to telemetry; STOP valium; place on alcohol withdrawal protocol with ativan prn; cont gabapentin 400mg TID. Thiamine/folic acid/MVI supplementation. Complicating his etoh withdrawal is likely withdrawal from cessation of suboxone in the last week. I spoke with Dr Suero from psych - asked for her formal assistance in managing his etoh & suboxone withdrawal. (2) Opioid use disorder: Plan: Previous history of hydrocodone use for chronic LBP, followed by suboxone Rx for 4-5 years up until about 1 week ago when he self-discontinued the suboxone abruptly. Likely going through suboxone withdrawal. Consulted psych, Dr Suero, for her assistance with this complicated situation. Stop valium; await further recs from Dr Suero. Place on telemetry. (3) Numbness of right foot: Plan: acute or chronic DVT should not cause such. I believe the numbness is due to #[address] lumbar spine pending; cannot obtain MRI due to spinal cord stimulator device. Gabapentin should help the numbness. (4) Degenerative lumbar spinal stenosis: Plan: known, chronic history of such. this is the reason for prior chronic opiate usage followed by suboxone. CT lumbar spine to r/o large herniated disc, severe spinal stenosis, etc contributing to current RLE symptoms. I suspect that the suboxone was controlling many of his chronic back/RLE symptoms and the abrupt cessation of suboxone is now allowing pain/numbness/etc to break through. (5) Spinal cord stimulator status: (6) Pancreatic cyst: Plan: CT Chest incidentally demonstrating "12 mm simple cystic lesion in the distal pancreas, 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" Will need f/u for such post-d/c (7) Alcohol use disorder: Plan: Long-term history of alcohol abuse beginning at age 16 -- sober between 12/2020 - 03/2021 per records, then relapsed and began drinking 12 beers daily Per [facility]: last drink was 07/13/21 (2 beers) See #1 above (8) Anxiety and depression: Plan: Continue venlafaxine ER 37.5mg daily Continue trazodone 100mg qHS Continue Zyprexa 5mg daily Defer med management to psych given the complexities of his mental health history and substance abuse history (9) Barretts esophagus: Plan: Cont daily PPI (10) HTN (hypertension): Plan: Continue lisinopril (11) Back pain: Plan: Chronic lumbar back pain See above (12) DVT (deep venous thrombosis): Plan: h/o extensive RLE DVTs in 10/2020 per pt's recollection I have requested those records from [facility] in [facility] The current doppler of his RLE suggests the 2 DVTs seen are chronic I am not convinced that his current RLE symptoms are from the DVTs; more concerned it is due to l-spine disease await records in meantime - lovenox 1mg/kg SC BID I reassured him that he has NO PEs and that the DVTs in the leg will receive adequate Rx with lovenox (13) Acute bronchitis: Plan: cont bronchodilators CT chest findings are c/w bronchitis defer on steroids PO/abx for now Plan: change observation to full admission status total care time today 75 minutes including complex care coordination, discussion with psych, reviewing records, etc Admission and Anticipated Discharge Date Admission Date: July 18, 2021 Subjective patient reports that his last etoh use was well over 7-10 days ago HOWEVER, I reviewed the records from [facility] -- he was admitted there on 07/15 after traveling from [place], [place]; last etoh intake per their notes was 07/13. Sober from etoh from 12/2020 to 03/2021 also per the limited records we have. He had been taking suboxone 2-8 twice daily for 4-5 years. STOPPED "cold turkey" sometime in the last week in [place] prompting him to go the hospital there. Prior to that had been on standard opiate therapy for chronic low back pain. Many years ago had surgery on L4/L5, and has had 3 nerve stimulator devices (placement, then replacement, and so forth). He can't recall when the last device was placed. The events that led to him getting to [facility] are quite confusing Sounds like he went to the ER in [place], spent prolonged time in ER, then was "admitted to the medical management area" (?), then psych? His timeline suggests 7-[address] [facility] records suggest it was not that long. Today he is VERY anxious SEVERE tremors throughout the entire encounter States he is having pain from just below the right calf down to the foot He has significant numbness of the entire right foot - this is a chronic problem, but usually it is very mild, and today the numbness is quite severe He reports ongoing edema of right leg and right aguero - worse than baseline He is very anxious about the blood clots reports compliance with Eliquis he has no family ho VTE had RLE DVTs with PEs - unprovoked - 10/2020 in [place] RLE is mildly weak with attempting to walk Review of Systems Review of Systems: gen - felt like he "had the flu" when he stopped suboxone; no fevers/chills currently cv - no chest pain pulm - cough with wheeze & mild dyspnea GI - no vomiting Physical Exam Physical Exam: gen - poor historian, very anxious, severe tremors of all limbs mouth - MMM neck - no JVD heart - tachy, s1 s2, no murmur lungs - mild end-exp wheezes b/l abd - soft NT ND BS+ skin - chronic stasis changes right aguero; cap refill right foot 1 sec musculo - right knee, right ankle, right foot - no synovitis vascular - mild venous stasis of right distal leg & foot psych - anxious, awake, alert Results & Data Results & Data ([facility]) Vital Signs (Past 12 Hours) Vital Signs Temp Pulse Resp BP Pulse Ox 07/19/21 15:45 36.4 C L 87 18 165/89 H 97 07/19/21 15:28 87 16 98 07/19/21 09:27 153/78 H 07/19/21 09:06 175/92 H 07/19/21 07:37 36.8 C 80 20 179/110 H 94 07/19/21 07:26 72 16 96 Laboratory Results labs reviewed - cbc, bmp wnl PG Care Time/CCT Total # of Minutes Spent Total Time Spent with Patient: Total time spent is greater than 50% in coordination of care (as documented) at patient's floor/unit and/or counseling patient: Prolonged Care Time Prolonged Care Time: Yes Total Prolonged Care Time: 75 Coding Level of Care Code 33502 Subseq Hosp Care Lvl 3 (25 - SIGNIFICANT, SEPARATELY IDENTIFIABLE ) Diagnoses Opioid use disorder F11.90 Pancreatic cyst K86.2 Alcohol use disorder Anxiety and depression F41.9; F32.A Barretts esophagus K22.70 HTN (hypertension) I10 Back pain M54.9 Alcohol withdrawal F10.239 DVT (deep venous thrombosis) I82.409 Numbness of right foot R20.0 Spinal cord stimulator status Z96.89 Degenerative lumbar spinal stenosis M48.061 Acute bronchitis J20.9 Additional Codes Prolonged Care Time - Prolonged Care Time: Yes ([id number]) Time Spent (min) 75
[2021-07-19] MEDS ORDERED: DICYCLOMINE HCL 20 MG TAB PO PRN (16:33)
[2021-07-19] MEDS ORDERED: LOPERAMIDE HCL 2 MG CAP PO PRN (16:33)
--- NOTE | 2021-07-19 16:36 | Communication Note ---
Date of Service: July 19, [address] Ramos regarding patient from [facility] being treated for alcohol use withdrawal and he recently self-discontinued his suboxone (8mg BID, total daily 16mg) and was being given symptomatic management at Health system for opioid withdrawal. Reviewed chart and current orders. Will see him tomorrow for formal psych consult. Plan: -AWSS with lorazepam for scoring -Discontinue Valium -Continue gabapentin 400mg TID, trazodone, melatonin, zyprexa and Effexor XR -Will order symptomatic meds for opioid withdrawal: Clonidine 0.1 mg BID prn for goosebumps, irritability, anxiety (hold for SBP<100) , dicyclomine 20mg q6h prn abdominal cramps, loperamide 2mg q6h prn diarrhea
[2021-07-19] MEDS ORDERED: ATIVAN IV ALCOHOL WITHDRAWL IV PRN (17:35)
--- NOTE | 2021-07-19 18:15 | CT Scan Report ---
LUMBAR SPINE CT CT DOSE: 1009.28 mGy.cm HISTORY: R foot numbness, weakness; eval l-spine pathology TECHNIQUE: Multiaxial CT images of the lumbar spine were performed and reformatted in the sagittal an d coronal plane without the use of contrast. A dose lowering technique was utilized adhering to the principles of ALARA. COMPARISON: None. FINDINGS: Mild levoscoliosis. No fracture or subluxation. There is moderate disc space narrowing at L 3-L4 and L5-S1. Mild disc space narrowing at L4-L5. Mild to moderate facet degenerative changes seen within the lumbar spine most pronounced at the L5-S1 level. Partially visualized spinal stimulator le ads are noted within the thoracic region. Small Schmorl's nodes at the L1 level. Moderate central can al narrowing at L4-L5 due to a broad-based posterior disc bulge and ligamentum flavum and facet hyper trophy. Mild central canal narrowing at L2-L3 and L3-L4 also due to broad-based posterior disc bulges and facet hypertrophy. IMPRESSION: 1. No fracture or subluxation within the lumbar spine. 2. Mild levoscoliosis. 3. Mild to moderate degenerative changes as described above. ACT 112: Negative or not required by law. Electronically signed by: Axel Maciel M.D. 07/19/2021 6:13 PM
[2021-07-19] MEDS: LORazepam 1 MG TAB PO PRN ×2 (20:32→23:19)
[2021-07-20] MEDS: LORazepam 1 MG TAB PO PRN ×5 (02:59→20:33)
[2021-07-20] MEDS: MELATONIN 3 MG TAB PO PRN (02:59)
[2021-07-20] MEDS: ACETAMINOPHEN 325 MG TAB PO PRN ×2 (03:00→08:36)
[2021-07-20] MEDS: traZODone HCL 100 MG TAB PO PRN (03:01)
--- NOTE | 2021-07-20 05:44 | Billing Data ---
Date of Service July 20, 2021 Coding Level of Care Code 62906 Initial Inpt Care Lvl 3
[2021-07-20] MEDS: ALBUTEROL HFA 8 GM INHALER INH SCH ×3 (07:47→22:00)
[2021-07-20] MEDS: cloNIDine HCL 0.1 MG TAB PO PRN (08:36)
[2021-07-20] MEDS: hydrOXYzine HCl 25 MG TAB PO PRN ×2 (09:12→22:26)
[2021-07-20] MEDS: NICOTINE 21 MG/24 HR TDSY TD SCH (09:13)
[2021-07-20] MEDS: amLODIPine BESYLATE 5 MG TAB PO SCH (09:48)
[2021-07-20] MEDS: CYANOCOBALAMIN (B-12) 500 MCG TABLET PO SCH (09:48)
[2021-07-20] MEDS: ENOXAPARIN INJ 120 MG/0.8 ML SYR SQ SCH ×2 (09:48→20:22)
[2021-07-20] MEDS: GABAPENTIN 400 MG CAP PO SCH ×3 (09:49→20:22)
[2021-07-20] MEDS: MULTIVITAMIN TAB PO SCH (09:49)
[2021-07-20] MEDS: OLANZapine 5 MG TABLET PO SCH (09:49)
[2021-07-20] MEDS: lisinopril 10 MG TAB PO SCH (09:49)
[2021-07-20] MEDS: FOLIC ACID 1 MG TAB PO SCH (09:49)
[2021-07-20] MEDS: THIAMINE HCL 100 MG TAB PO SCH (09:50)
[2021-07-20] MEDS: VENLAFAXINE HCL XR 37.5 MG CAPXR PO SCH (09:50)
[2021-07-20] MEDS: PANTOprazole 40 MG TAB PO SCH (09:50)
--- NOTE | 2021-07-20 13:28 | Psychiatric Consultation ---
Date of Consultation July 20, 2021 Impression / Recommendations Impression 61 yo admitted medically for DVT after recent discontinuation of suboxone and alcohol withdrawal was being continued on Valium over the last 2 weeks as part of prolonged alcohol withdrawal taper. Diagnostically consistent with alcohol use disorder, no major mood symptoms. Suspect ongoing tremulousness and periods of anxiety are related to Valium taper. Recommended switch to ativan with AWSS for benzo withdrawal as this is safer in someone with history of heavy alcohol use. At this point risk of harm to self and others is low as he denies SI and HI and he remains motivated to return to residential substance use treatment once medically stable. Should be well outside the window for any acute opioid withdrawal side effects at this point and he denies any current symptoms of this. (1) Alcohol use disorder: (2) Benzodiazepine withdrawal: -AWSS with lorazepam for scoring for benzo withdrawal -Continue gabapentin 400mg TID, melatonin, zyprexa and Effexor XR -Will stop trazodone and start mirtazapine to help with sleep-reviewed benefits/alternatives/risks including but not limited to sedation, weight gain and he consented to start this -Has symptomatic meds for opioid withdrawal but unlikely to need any at this point. -Psychiatrically stable to return to [facility] once medically stable Risk Factors Assessment Do You Have Access To A Gun?: No Psych History Identifying Data 61 yo man from [facility] with a history of alcohol use disorder, chronic back pain from lumbar spinal stenosis (most recently on suboxone 8mg BID up until ~3 weeks ago when he self-discontinued), hx DVT and PE admitted medically due to concern for DVT from [facility] residential alcohol use treatment program. Psychiatry was consulted for recommendations regarding his substance use withdrawal and medications. Chief Complaint "Everyone at this hospital has been so helpful and great". History of Present Illness [place] reviewed his history of long period of alcohol use, ~12 pack beer per day for the last ~15 years, and had been on suboxone for about 3-4 years for pain related to chronic lumbar stenosis. About 2-3 weeks ago he decided to stop the suboxone as he no longer wanted to rely on it for pain management nor the frequent appointments required for getting his prescriptions. Unfortunately he experienced quite significant withdrawal side effects and felt "so horribly physically" that he developed SI. He then sought treatment at his local hospital in [facility] and was admitted medically for supervised alcohol withdrawal via Valium and was then continued on Valium during his inpatient psychiatric admission. His mood improved significantly during psychiatric admission and he had not experienced any depression nor SI since that time. He was admitted to [facility] residential substance use program for his alcohol use directly after discharge from [facility]. He cannot recall Effexor by assumes that it must have been started during his inpatient psych admission. He's been on gabapentin for many years for nerve pain and finds this helpful. He's unsure when zyprexa was started but finds it h elpful for anxiety. He feels trazodone, which he's been taking for many years, hasn't been helping much with sleep. Today his mood is stable and euthymic and he denies any psychiatric symptoms other than some anxiety related to being in the hospital. He's tremulous and we review this is likely from the Valium withdrawal. He remains eager to return to [facility] once medically stable to continue his work on achieving sobriety. Past Psychiatric History Outpatient Services: none currently, [facility] will set up as he nears the end of the program Previous Psych Admissions: [facility] about 1 week ago Do You Have Access To A Gun?: No History of Previous Suicide Attempt: No Past Medication Trials: he can't recall Allergies Allergy/AdvReac Type Severity Reaction Status Date / Time pregabalin [From Lyrica] Allergy Unknown Verified 07/19/21 03:45 Home Medications Medication Instructions Recorded Confirmed Type albuterol sulfate 90 mcg/actuation 2 puff INHALATION Q4H PRN 07/19/21 07/19/21 History aerosol inhaler amlodipine 5 mg tablet 5 mg PO DAILY 07/19/21 07/19/21 History apixaban 5 mg tablet (Eliquis) 5 mg PO BID 07/19/21 07/19/21 History clonidine HCl 0.1 mg tablet 0.1 mg PO TID PRN 07/19/21 07/19/21 History cyanocobalamin (vitamin B-12) 1,000 mcg PO DAILY 07/19/21 07/19/21 History 1,000 mcg tablet diazepam 5 mg tablet See Rx Instructions .ROUTE .COMPLEX 07/19/21 07/19/21 History diphenhydramine HCl 25 mg capsule 25 mg PO Q6H PRN 07/19/21 07/19/21 History (Benadryl) folic acid 1 mg tablet 1 mg PO DAILY 07/19/21 07/19/21 History gabapentin 400 mg capsule 400 mg PO TID 07/19/21 07/19/21 History hydroxyzine pamoate 50 mg capsule 50 mg PO TID PRN 07/19/21 07/19/21 History lisinopril 10 mg tablet 10 mg PO DAILY 07/19/21 07/19/21 History melatonin 5 mg tablet 5 mg PO HS PRN 07/19/21 07/19/21 History multivitamin 1 tab PO DAILY 07/19/21 07/19/21 History nicotine 14 mg/24 hr daily 14 mg TRANSDERMAL DAILY PRN 07/19/21 07/19/21 History transdermal patch olanzapine 5 mg tablet 5 mg PO DAILY 07/19/21 07/19/21 History omeprazole 20 mg capsule,delayed 20 mg PO DAILY 07/19/21 07/19/21 History release thiamine HCl (vitamin B1) 100 mg 100 mg PO DAILY 07/19/21 07/19/21 History tablet trazodone 100 mg tablet 100 mg PO HS PRN 07/19/21 07/19/21 History venlafaxine 37.5 mg 37.5 mg PO DAILY 07/19/21 07/19/21 History capsule,extended release 24 hr Substance Abuse History see HPI Personal History Living Arrangements: Apartment ([place]) Employment Status: Disabled Beliefs That Will Affect Care: None Patient History Medical History Back pain HTN (hypertension) Hx of deep venous thrombosis Hx pulmonary embolism Surgical History Hx of spinal surgery Social History Smoking Status: Heavy tobacco smoker Tobacco Type: Cigarettes Second Hand Exposure: No; Do You Dip or Chew Tobacco: No; Tobacco Cessation Education Requested by Patient: No Hx Alcohol Use: Yes Hx Substance Use: No Preferred Language: Swedish Communication Ability: Effective Order Expediter Required: No Beliefs That Will Affect Care: None Current Living Situation: Boarding Home Other Information That Helps Us Care for You: No Feels Safe at Home: No Is there a partner from a previous relationship who is making you feel unsafe now?: No Any Concerns about Your Family Situation: No Would You Like to Speak to Someone About Your Situation: No Assistive Devices: None Physical Exam Psychiatric: Orientation: alert and oriented x 3 (couldn't recall city but not from this area and knew [facility]) Apperance: appropriately dressed and appropriately groomed Eye Contact: good eye contact Motor Behavior: no abnormal motor movements Speech: normal rate/rhythm/volume of speech Affect: euthymic affect Mood: + anxious mood; no depressed mood Thought Process: + circumstantial thought process Thought Content: reality based without delusions Suicidal Thoughts: denies suicidal thoughts Homicidal Thoughts: denies homicidal thoughts Hallucinations: no auditory hallucinations and no visual hallucinations Cognition: attention grossly intact and language grossly intact Estimated Intelligence: consistent with education level Insight: + fair insight Judgement: + fair judgement Vital Signs (Past 24 Hours): Last Vital Signs Temp 36.6 C 07/20/21 12:22 Pulse 98 H 07/20/21 12:22 Resp 18 07/20/21 12:22 BP 137/90 07/20/21 12:22 Pulse Ox 97 07/20/21 12:22 Review of Systems All systems reviewed & are unremarkable except as noted in HPI & below (right leg swelling) Results & Data (PSY) Medications Administered Acetaminophen (Acetaminophen 325 Mg Tab) 650 mg PO Q4H PRN PRN Reason: pain/fever Stop: 08/17/21 22:27 Last Admin: 07/20/21 08:36 Dose: 650 mg Documented by: [id number] Admin: 07/20/21 03:00 Dose: 650 mg Documented by: [id number] Admin: 07/19/21 02:26 Dose: 650 mg Documented by: [id number] Albuterol (Albuterol Hfa 8 Gm Inhaler) 2 puffs INH Q8R [facility]; Protocol Stop: 08/18/21 14:59 Last Admin: 07/20/21 07:47 Dose: 2 puffs Documented by: [id number] Admin: 07/19/21 22:03 Dose: 2 puffs Documented by: [id number] Admin: 07/19/21 15:43 Dose: 2 puffs Documented by: [id number] Amlodipine Besylate (Amlodipine Besylate 5 Mg Tab) 5 mg PO DAILY [facility] Stop: 08/18/21 08:59 Last Admin: 07/20/21 09:48 Dose: 5 mg Documented by: [id number] Admin: 07/19/21 08:04 Dose: 5 mg Documented by: [id number] Clonidine HCl (Clonidine Hcl 0.1 Mg Tab) 0.1 mg PO BID PRN PRN Reason: opioid withdrawal sx Stop: 08/18/21 16:32 Last Admin: 07/20/21 08:36 Dose: 0.1 mg Documented by: [id number] Cyanocobalamin (Cyanocobalamin (B-12) 500 Mcg Tablet) 1,000 mcg PO DAILY NATHALIE Stop: 08/18/21 08:59 Last Admin: 07/20/21 09:48 Dose: 1,000 mcg Documented by: [id number] Admin: 07/19/21 08:04 Dose: 1,000 mcg Documented by: [id number] Enoxaparin Sodium (Enoxaparin Inj 120 Mg/0.8 Ml Syr) 111 mg SQ Q12H NATHALIE Stop: 08/18/21 08:59 Last Admin: 07/20/21 09:48 Dose: 111 mg Documented by: [id number] Admin: 07/19/21 20:33 Dose: 111 mg Documented by: [id number] Admin: 07/19/21 10:11 Dose: 111 mg Documented by: [id number] Folic Acid (Folic Acid 1 Mg Tab) 1 mg PO DAILY NATHALIE Stop: 07/30/21 09:01 Last Admin: 07/20/21 09:49 Dose: 1 mg Documented by: [id number] Admin: 07/19/21 08:04 Dose: 1 mg Documented by: [id number] Gabapentin (Gabapentin 400 Mg Cap) 400 mg PO TID NATHALIE Stop: 08/18/21 08:59 Last Admin: 07/20/21 12:37 Dose: 400 mg Documented by: [id number] Admin: 07/20/21 09:49 Dose: 400 mg Documented by: [id number] Admin: 07/19/21 20:33 Dose: 400 mg Documented by: [id number] Admin: 07/19/21 13:22 Dose: 400 mg Documented by: [id number] Admin: 07/19/21 08:04 Dose: 400 mg Documented by: [id number] Hydroxyzine HCl (Hydroxyzine Hcl 25 Mg Tab) 50 mg PO TID PRN PRN Reason: Anxiety Stop: 08/18/21 05:09 Last Admin: 07/20/21 09:12 Dose: 50 mg Documented by: [id number] Admin: 07/19/21 09:10 Dose: 50 mg Documented by: [id number] Lisinopril (Lisinopril 10 Mg Tab) 10 mg PO DAILY [facility] Stop: 08/18/21 08:59 Last Admin: 07/20/21 09:49 Dose: 10 mg Documented by: [id number] Admin: 07/19/21 08:03 Dose: 10 mg Documented by: [id number] Lorazepam (Lorazepam 1 Mg Tab) 1 - 3 mg PO UD PRN; Protocol PRN Reason: EtoH Withdrawal AWSS 6-10+ Stop: 08/18/21 17:34 Last Admin: 07/20/21 12:37 Dose: 1 mg Documented by: [id number] Admin: 07/20/21 07:31 Dose: 2 mg Documented by: [id number] Admin: 07/20/21 02:59 Dose: 1 mg Documented by: [id number] Admin: 07/19/21 23:19 Dose: 1 mg Documented by: [id number] Admin: 07/19/21 20:32 Dose: 1 mg Documented by: [id number] Melatonin (Melatonin 3 Mg Tab) 3 mg PO HS PRN PRN Reason: Insomnia Stop: 08/18/21 05:44 Last Admin: 07/20/21 02:59 Dose: 3 mg Documented by: [id number] Miscellaneous (Remove Nicoderm Patch) 1 ea N/A QAM [facility] Stop: 08/18/21 08:59 Last Admin: 07/20/21 09:50 Dose: 1 ea Documented by: [id number] Admin: 07/19/21 08:04 Dose: 1 ea Documented by: [id number] Multivitamins (Multivitamin Tab) 1 tab PO DAILY [facility] Stop: 08/18/21 08:59 Last Admin: 07/20/21 09:49 Dose: 1 tab Documented by: [id number] Admin: 07/19/21 08:04 Dose: 1 tab Documented by: [id number] Nicotine (Nicotine 21 Mg/24 Hr Tdsy) 21 mg TD DAILY [facility] Stop: 08/19/21 08:59 Last Admin: 07/20/21 09:13 Dose: 21 mg Documented by: [id number] Olanzapine (Olanzapine 5 Mg Tablet) 5 mg PO DAILY [facility] Stop: 08/18/21 08:59 Last Admin: 07/20/21 09:49 Dose: 5 mg Documented by: [id number] Admin: 07/19/21 08:04 Dose: 5 mg Documented by: [id number] Pantoprazole Sodium (Pantoprazole 40 Mg Tab) 40 mg PO DAILY [facility] Stop: 08/18/21 08:59 Last Admin: 07/20/21 09:50 Dose: 40 mg Documented by: [id number] Admin: 07/19/21 08:04 Dose: 40 mg Documented by: [id number] Thiamine HCl (Thiamine Hcl 100 Mg Tab) 100 mg PO DAILY [facility] Stop: 07/30/21 09:01 Last Admin: 07/20/21 09:50 Dose: 100 mg Documented by: [id number] Admin: 07/19/21 08:04 Dose: 100 mg Documented by: [id number] Trazodone HCl (Trazodone Hcl 100 Mg Tab) 100 mg PO HS PRN PRN Reason: Insomnia Stop: 08/18/21 05:09 Last Admin: 07/20/21 03:01 Dose: 100 mg Documented by: [id number] Venlafaxine HCl (Venlafaxine Hcl Xr 37.5 Mg Capxr) 37.5 mg PO DAILY [facility] Stop: 08/18/21 08:59 Last Admin: 07/20/21 09:50 Dose: 37.5 mg Documented by: [id number] Admin: 07/19/21 08:04 Dose: 37.5 mg Documented by: [id number] Coding Level of Care Code 18798 Inpt Consult Level 3 Diagnoses Alcohol use disorder Benzodiazepine withdrawal F13.239
[2021-07-20] MEDS ORDERED: POTASSIUM CHLORIDE CRTAB 20 MEQ TABCR PO STA (16:58)
[2021-07-20] MEDS ORDERED: FUROSEMIDE 20 MG TAB PO ONE (16:58)
--- NOTE | 2021-07-20 17:00 | Hospitalist Progress Note ---
Date of Service July 20, 2021 Assessment & Plan (1) Alcohol withdrawal: Plan: Per documentation from [facility] his last documented drink was 07/13/21. However, his self-reported timeline would suggest his last drink was 10+ days ago. Tremors could be etoh withdrawal, opiate withdrawal, or benzo withdrawal. Remains on AWSS protocol - ativan via this protocol will help the tremors regardless of etiology. Cont gabapentin 400mg TID. Thiamine/folic acid/MVI supplementation. Appreciate psych consultation & recs from Dr Suero. Continue telemetry. (2) Opioid use disorder: Plan: Previous history of hydrocodone use for chronic LBP, followed by suboxone Rx for 4-5 years up until about 1-2 weeks ago. At that time he self-discontinued the suboxone abruptly. Appreciate recs from Dr Suero. Avoiding narcotics at this time for any pain issues. (3) Numbness of right foot: Plan: acute or chronic DVT should not cause such. I believe the numbness is due to #[address] lumbar spine with significant L4-L5 and L5-S1 disease which could be causing his numbness. Check a B12 level in the am. TSH, mag level wnl. Gabapentin should help the numbness. Consider dose titration if necessary for optimal Rx of this symptom, but hold off for now. (4) Degenerative lumbar spinal stenosis: Plan: known, chronic history of such. this is the reason for prior chronic opiate usage followed by suboxone. CT lumbar spine with significant L4-L5 disease as well as L5-S1 disease which could be contributing to his RLE symptoms. I suspect that the suboxone was controlling many of his chronic back/RLE symptoms and the abrupt cessation of suboxone is now allowing pain/numbness/etc to break through. 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 See #1 above (8) Anxiety and depression: Plan: Continue venlafaxine ER 37.5mg daily Dr Suero starting remeron in nehemiah of trazodone Continue Zyprexa 5mg daily Defer med management to psych given the complexities of his mental health history and substance abuse history (9) Barretts esophagus: Plan: Cont daily PPI (10) HTN (hypertension): Plan: Continue lisinopril (11) Back pain: Plan: Chronic lumbar back pain See above (12) DVT (deep venous thrombosis): Plan: h/o extensive RLE DVTs in 10/2020 per pt's recollection I have requested those records from [facility] in [facility] The current doppler of his RLE suggests the 2 DVTs seen are chronic I am not convinced that his current RLE symptoms are from the DVTs; more concerned it is due to l-spine disease await records in meantime - lovenox 1mg/kg SC BID I reassured him that he has NO PEs and that the DVTs in the leg will receive adequate Rx with lovenox I cannot rule out that if the popliteal DVT is acute it is contributing to severe right ankle pain (13) Acute bronchitis: Plan: cont bronchodilators CT chest findings are c/w bronchitis add symbicort 2 puffs BID add spiriva daily prednisone 40mg daily, first dose now (14) Blood in stool: Plan: etiology? internal hemorrhoids vs diverticular disease vs other JOI negative follow clinically if it recurs consider CT a/p (15) Right ankle pain: Plan: 2nd to gout? CPPD? DVT? referred pain from l-spine? other? check ankle x-rays uric acid, sed rate, crp not c/w inflammatory arthropathy if popliteal DVT is acute this could be cause of pain but doubt as that DVT would cause more popliteal fossa pain (16) Epigastric abdominal pain: Plan: biliary? gastric? other? cont PPI if pain persists then CT a/p Admission and Anticipated Discharge Date Admission Date: July 19, 2021 Subjective pt continues to be quite anxious he is most worried about the DVTs in the RLE and the "leg getting worse" - like "Last year when I had the DVTs" he had multiple complaints today during my visit - 1. had a bowel movement - saw gross blood; has not had such before; denies rectal pain 2. continues right distal leg and right ankle pain - hurts to bear weight; also hurts over the foot itself 3. ongoing numbness of entire right foot 4. ongoing swelling of right leg 5. coughing, congestion 6. pain with eating - happens 20 minutes after eating; upper abdomen in location Review of Systems Review of Systems: gen - eating well cv - no cp pulm - no dyspnea despite cough GI - no nausea or emesis Physical Exam Physical Exam: gen - ongoing tremors - slightly better than yesterday; anxious; NAD otherwise mouth - MMM neck - no JVD heart - RRR, s1 s2, no murmur lungs - wheezes b/l abd - soft ND BS+; tender high epigastric region JOI - no gross blood; no external hemorrhoids; no internal hemorrhoids; no tenderness or pain; no impaction skin - chronic stasis changes right aguero; cap refill right foot brisk musculo - right knee, right ankle, right foot - no synovitis, but right ankle tender to palpation vascular - mild venous stasis of right distal leg & foot psych - anxious Results & Data Results & Data ([facility]) Vital Signs (Past 12 Hours) Vital Signs Temp Pulse Pulse Resp BP Pulse Ox 07/20/21 15:53 37.2 C 96 H 22 124/82 99 07/20/21 15:21 87 07/20/21 14:57 71 18 98 07/20/21 12:22 36.6 C 98 H 18 137/90 97 07/20/21 08:45 36.6 C 110 H 18 126/91 96 07/20/21 07:47 103 H 18 98 07/20/21 07:43 36.5 C 86 20 133/93 98 07/20/21 07:09 71 Laboratory Results Laboratory Results - last 24 hr 07/20/21 07/20/21 07/20/21 17:35 17:35 17:35 ESR 16 Uric Acid 5.9 Magnesium 1.8 C-Reactive Protein 1.42 H TSH 1.177 PG Care Time/CCT Total # of Minutes Spent Total Time Spent with Patient: Total time spent is greater than 50% in coordination of care (as documented) at patient's floor/unit and/or counseling patient: Coding Level of Care Code 05732 Subseq Hosp Care Lvl 3 Diagnoses Alcohol withdrawal F10.239 Opioid use disorder F11.90 Numbness of right foot R20.0 Degenerative lumbar spinal stenosis M48.061 Spinal cord stimulator status Z96.89 Pancreatic cyst K86.2 Alcohol use disorder Anxiety and depression F41.9; F32.A Barretts esophagus K22.70 HTN (hypertension) I10 Back pain M54.9 DVT (deep venous thrombosis) I82.409 Acute bronchitis J20.9 Blood in stool K92.1 Right ankle pain M25.571 Epigastric abdominal pain R10.13
[2021-07-20 18:24] LABS: C Reactive Protein 1.42 mg/dl (0-0.5); Magnesium 1.8 mg/dl (1.7-2.4); Uric Acid 5.9 mg/dl (2.6-7.2)
[2021-07-20] MEDS ORDERED: predniSONE 20 MG TAB PO STA (20:10)
--- NOTE | 2021-07-20 20:55 | XRay Report ---
RIGHT ANKLE 2 VIEWS CLINICAL HISTORY: Right ankle pain. FINDINGS: AP and lateral views of the right ankle are obtained. No prior studies are available for co mparison at the time of dictation. The skeletal structures are well mineralized. No fracture is seen. The ankle mortise is intact. There is no joint effusion. Minimal degenerative spurring is seen along the anterior and posterior tibial plafonds. Soft tissue swelling is present throughout the right low er extremity. Chronic posttraumatic deformity of the fibular shaft is partially visualized. IMPRESSION: Soft tissue swelling with no acute bony abnormality identified. Electronically signed by: Arik Mathews M.D. 07/20/2021 8:52 PM
[2021-07-20] MEDS: MIRTAZAPINE TAB 15 MG TAB PO SCH (22:09)
[2021-07-21] MEDS: cloNIDine HCL 0.1 MG TAB PO PRN ×2 (02:36→15:47)
[2021-07-21] MEDS: LORazepam 1 MG TAB PO PRN ×5 (03:42→19:56)
[2021-07-21 06:38] LABS: BUN Creatinine Ratio 11.8 (10-20); Calcium 10.8 mg/dl (8.5-10.1); Creatinine Clr Calc Pharmacy 89.9 ml/min; Est GFR (African American) 83.5 ml/min; Est GFR (Non-African American) 72.1 ml/min; Ferritin 117.8 ng/ml (8-388); Potassium 4.9 mmol/L (3.5-5.1)
[2021-07-21] MEDS: ALBUTEROL HFA 8 GM INHALER INH SCH ×3 (07:32→22:25)
[2021-07-21] MEDS ORDERED: FUROSEMIDE 20 MG TAB PO ONE (08:04)
[2021-07-21] MEDS: NICOTINE 21 MG/24 HR TDSY TD SCH (08:10)
[2021-07-21] MEDS: amLODIPine BESYLATE 5 MG TAB PO SCH (08:12)
[2021-07-21] MEDS: VENLAFAXINE HCL XR 37.5 MG CAPXR PO SCH (08:12)
[2021-07-21] MEDS: CYANOCOBALAMIN (B-12) 500 MCG TABLET PO SCH (08:12)
[2021-07-21] MEDS: OLANZapine 5 MG TABLET PO SCH ×2 (08:12→20:49)
[2021-07-21] MEDS: FOLIC ACID 1 MG TAB PO SCH (08:12)
[2021-07-21] MEDS: lisinopril 10 MG TAB PO SCH (08:13)
[2021-07-21] MEDS: PANTOprazole 40 MG TAB PO SCH (08:13)
[2021-07-21] MEDS: GABAPENTIN 400 MG CAP PO SCH ×3 (08:13→20:50)
[2021-07-21] MEDS: MULTIVITAMIN TAB PO SCH (08:13)
[2021-07-21] MEDS: FLUTICASONE/VILANTEROL 100/25MCG 14 PUFFS/INHALER INH SCH (08:15)
[2021-07-21] MEDS: ENOXAPARIN INJ 120 MG/0.8 ML SYR SQ SCH ×2 (08:16→20:48)
[2021-07-21] MEDS: hydrOXYzine HCl 25 MG TAB PO PRN ×2 (08:16→20:56)
[2021-07-21] MEDS: UMECLIDINIUM BROMIDE 62.5MCG/BLISTER 7 PUFFS/INHALER INH SCH (08:20)
[2021-07-21] MEDS: METOPROLOL TARTRATE 25 MG TAB PO SCH ×2 (08:29→20:50)
[2021-07-21] MEDS: THIAMINE HCL 100 MG TAB PO SCH ×2 (08:29→20:49)
[2021-07-21 08:49] LABS: Folate (Folic Acid) > 22.30 ng/ml (>5.38)
[2021-07-21 08:50] LABS: Vitamin B12 845 pg/ml (180-914)
[2021-07-21] MEDS ORDERED: diazePAM 5 MG TABLET PO SCH (09:00)
[2021-07-21] MEDS: ACETAMINOPHEN 325 MG TAB PO PRN (13:08)
--- NOTE | 2021-07-21 15:26 | Psychiatric Progress Note ---
Date of Service July 21, 2021 Impression / Recommendations Impression 61 yo admitted medically for DVT after recent discontinuation of suboxone and alcohol withdrawal was being continued on Valium over the last 2 weeks as part of prolonged alcohol withdrawal taper. Diagnostically consistent with alcohol use disorder, no major mood symptoms. Suspect ongoing tremulousness and periods of anxiety are related to Valium taper. Recommended switch to ativan with AWSS for benzo withdrawal as this is safer in someone with history of heavy alcohol use. At this point risk of harm to self and others is low as he denies SI and HI and he remains motivated to return to residential substance use treatment once medically stable. Should be well outside the window for any acute opioid withdrawal side effects at this point and he denies any current symptoms of this. 07/21/21: Difficulty with sleep last night even with switch to mirtazapine, will switch zyprexa to qhs dosing to help with insomnia. Continue with AWSS for benzo withdrawal, still scoring. (1) Alcohol use disorder: (2) Benzodiazepine withdrawal: -AWSS with lorazepam for scoring for benzo withdrawal -Continue gabapentin 400mg TID, melatonin, zyprexa and Effexor XR -c/w mirtazapine to help with sleep, switching zyprexa to qhs dosing to help -Has symptomatic meds for opioid withdrawal but unlikely to need any at this point. -Psychiatrically stable to return to [facility] once medically stable Risk Factors Assessment Do You Have Access To A Gun?: No Interval History Identifying Information 61 yo man from [facility] with a history of alcohol use disorder, chronic back pain from lumbar spinal stenosis (most recently on suboxone 8mg BID up until ~3 weeks ago when he self-discontinued), hx DVT and PE admitted medically due to concern for DVT from [facility] residential alcohol use treatment program. Psychiatry was consulted for recommendations regarding his substance use withdrawal and medications. Chief Complaint "I'm a little bit better, my foot still feels numb". Review of Systems Notes poor sleep, stable appetite Subjective Subjective Patient was seen & assessed and interval progress reviewed. he reports poor sleep with awakening at about 3am and nursing documentation supports this, he was awake from 3am on. Reviewed options for sleep medications he consents to switching zyprexa to qhs. Less tremulous today, finding ativan helpful for this. Eager to walk more as he will be ambulating independently once he returns to [facility]. Physical Exam Psychiatric Orientation: alert and oriented x 3 Apperance: appropriately dressed and appropriately groomed Eye Contact: good eye contact Motor Behavior: no abnormal motor movements Speech: normal rate/rhythm/volume of speech Affect: euthymic affect Mood: + anxious mood; no depressed mood Thought Process: goal directed thought process Thought Content: reality based without delusions Suicidal Thoughts: denies suicidal thoughts Homicidal Thoughts: denies homicidal thoughts Hallucinations: no auditory hallucinations and no visual hallucinations Cognition: attention grossly intact and language grossly intact Estimated Intelligence: consistent with education level Insight: + fair insight Judgement: + fair judgement Vital Signs (Past 24 Hours) Last Vital Signs Temp 36.9 C 07/21/21 11:32 Pulse 91 H 07/21/21 14:53 Resp 18 07/21/21 11:32 BP 151/106 H 07/21/21 11:32 Pulse Ox 95 07/21/21 11:32 Results & Data ([facility]) Laboratory Results Laboratory Results - last 24 hr 07/20/21 07/20/21 07/20/21 17:35 17:35 17:35 ESR 16 Sodium Potassium Chloride Carbon Dioxide Anion Gap BUN Creatinine Est Cr Clr Drug Dosing Est GFR ( Amer) Est GFR (Non-Af Amer) BUN/Creatinine Ratio Glucose Uric Acid 5.9 Calcium Magnesium 1.8 Iron TIBC Unsaturated IBC Transferrin % Sat Ferritin C-Reactive Protein 1.42 H Vitamin B12 Folate TSH 1.177 07/21/21 07/21/21 07/21/21 05:31 05:31 07:23 ESR Sodium 136 Potassium 4.9 D Chloride 102 Carbon Dioxide 24 Anion Gap 10 BUN 13 Creatinine 1.10 Est Cr Clr Drug Dosing 89.9 Est GFR ( Amer) 83.5 Est GFR (Non-Af Amer) 72.1 BUN/Creatinine Ratio 11.8 Glucose 149 H Uric Acid Calcium 10.8 H Magnesium Iron 80 TIBC 345 Unsaturated IBC 265 Transferrin % Sat 23 Ferritin 117.8 C-Reactive Protein Vitamin B12 Cancelled 845 Folate Cancelled > 22.30 TSH Current Inpatient Medications Current Inpatient Medications: Current Inpatient Medications Acetaminophen (Acetaminophen 325 Mg Tab) 650 mg PO Q4H PRN PRN Reason: pain/fever Stop: 08/17/21 22:27 Last Admin: 07/21/21 13:08 Dose: 650 mg Documented by: Albuterol (Albut/Ipratrop 3mg/0.5mg Neb 3 Ml Vial) 3 ml NEB Q4R PRN; Protocol PRN Reason: sob/wheezing Stop: 08/18/21 02:59 Albuterol (Albuterol Hfa 8 Gm Inhaler) 2 puffs INH Q8R NATHALIE; Protocol Stop: 08/18/21 14:59 Last Admin: 07/21/21 15:24 Dose: 2 puffs Documented by: Amlodipine Besylate (Amlodipine Besylate 5 Mg Tab) 5 mg PO DAILY NATHALIE Stop: 08/18/21 08:59 Last Admin: 07/21/21 08:12 Dose: 5 mg Documented by: Clonidine HCl (Clonidine Hcl 0.1 Mg Tab) 0.1 mg PO BID PRN PRN Reason: opioid withdrawal sx Stop: 08/18/21 16:32 Last Admin: 07/21/21 02:36 Dose: 0.1 mg Documented by: Cyanocobalamin (Cyanocobalamin (B-12) 500 Mcg Tablet) 1,000 mcg PO DAILY NATHALIE Stop: 08/18/21 08:59 Last Admin: 07/21/21 08:12 Dose: 1,000 mcg Documented by: Dicyclomine HCl (Dicyclomine Hcl 20 Mg Tab) 20 mg PO Q6H PRN PRN Reason: abdominal cramps Stop: 08/18/21 16:44 Enoxaparin Sodium (Enoxaparin Inj 120 Mg/0.8 Ml Syr) 111 mg SQ Q12H NATHALIE Stop: 08/18/21 08:59 Last Admin: 07/21/21 08:16 Dose: 111 mg Documented by: Fluticasone/Vilanterol (Fluticasone/Vilanterol 100/25mcg 14 Puffs/Inhaler) 1 puffs INH DAILY NATHALIE Stop: 08/20/21 08:59 Last Admin: 07/21/21 08:15 Dose: 1 puffs Documented by: Folic Acid (Folic Acid 1 Mg Tab) 1 mg PO DAILY NATHALIE Stop: 07/30/21 09:01 Last Admin: 07/21/21 08:12 Dose: 1 mg Documented by: Gabapentin (Gabapentin 400 Mg Cap) 400 mg PO TID NATHALIE Stop: 08/18/21 08:59 Last Admin: 07/21/21 13:08 Dose: 400 mg Documented by: Hydroxyzine HCl (Hydroxyzine Hcl 25 Mg Tab) 50 mg PO TID PRN PRN Reason: Anxiety Stop: 08/18/21 05:09 Last Admin: 07/21/21 08:16 Dose: 50 mg Documented by: Lisinopril (Lisinopril 10 Mg Tab) 10 mg PO DAILY NATHALIE Stop: 08/18/21 08:59 Last Admin: 07/21/21 08:13 Dose: 10 mg Documented by: Loperamide HCl (Loperamide Hcl 2 Mg Cap) 2 mg PO Q6H PRN PRN Reason: Diarrhea Stop: 08/18/21 16:32 Lorazepam (Lorazepam 1 Mg Tab) 1 - 3 mg PO UD PRN; Protocol PRN Reason: EtoH Withdrawal AWSS 6-10+ Stop: 08/18/21 17:34 Last Admin: 07/21/21 12:20 Dose: 2 mg Documented by: Melatonin (Melatonin 3 Mg Tab) 3 mg PO HS PRN PRN Reason: Insomnia Stop: 08/18/21 05:44 Last Admin: 07/20/21 02:59 Dose: 3 mg Documented by: Metoprolol Tartrate (Metoprolol Tartrate 25 Mg Tab) 25 mg PO BID NATHALIE Stop: 08/20/21 08:59 Last Admin: 07/21/21 08:29 Dose: 25 mg Documented by: Mirtazapine (Mirtazapine Tab 15 Mg Tab) 15 mg PO HS NATHALIE Stop: 08/19/21 20:59 Last Admin: 07/20/21 22:09 Dose: 15 mg Documented by: Miscellaneous (Remove Nicoderm Patch) 1 ea N/A QAM NATHALIE Stop: 08/18/21 08:59 Last Admin: 07/21/21 08:13 Dose: 1 ea Documented by: Multivitamins (Multivitamin Tab) 1 tab PO DAILY NATHALIE Stop: 08/18/21 08:59 Last Admin: 07/21/21 08:13 Dose: 1 tab Documented by: Nicotine (Nicotine 21 Mg/24 Hr Tdsy) 21 mg TD DAILY [facility] Stop: 08/19/21 08:59 Last Admin: 07/21/21 08:10 Dose: 21 mg Documented by: Olanzapine (Olanzapine 5 Mg Tablet) 5 mg PO DAILY NATHALIE Stop: 08/18/21 08:59 Last Admin: 07/21/21 08:12 Dose: 5 mg Documented by: Pantoprazole Sodium (Pantoprazole 40 Mg Tab) 40 mg PO DAILY NATHALIE Stop: 08/18/21 08:59 Last Admin: 07/21/21 08:13 Dose: 40 mg Documented by: Thiamine HCl (Thiamine Hcl 100 Mg Tab) 200 mg PO BID NATHALIE Stop: 08/20/21 08:59 Last Admin: 07/21/21 08:29 Dose: 200 mg Documented by: Umeclidinium [place] (Umeclidinium [place] 62.5mcg/Blister 7 Puffs/Inhaler) 1 puffs INH QAM NATHALIE Stop: 08/20/21 08:59 Last Admin: 07/21/21 08:20 Dose: 1 puffs Documented by: Venlafaxine HCl (Venlafaxine Hcl Xr 37.5 Mg Capxr) 37.5 mg PO DAILY NATHALIE Stop: 08/18/21 08:59 Last Admin: 07/21/21 08:12 Dose: 37.5 mg Documented by:
[2021-07-21] MEDS: SUCRALFATE 1 GM/10 ML UDC PO SCH ×2 (17:24→20:48)
[2021-07-21] MEDS: predniSONE 20 MG TAB PO SCH (17:24)
[2021-07-21] MEDS: AMOXICILLIN/CLAVULANATE 875 MG TAB PO SCH (17:24)
[2021-07-21] MEDS: MIRTAZAPINE TAB 15 MG TAB PO SCH (20:50)
[2021-07-21] MEDS: MELATONIN 3 MG TAB PO PRN (20:56)
--- NOTE | 2021-07-21 22:54 | Hospitalist Progress Note ---
Date of Service July 21, 2021 Assessment & Plan (1) Alcohol withdrawal: Plan: Per documentation from [facility] his last documented drink was 07/13/21. However, his self-reported timeline would suggest his last drink was 10+ days ago. Tremors could be etoh withdrawal, opiate withdrawal, or benzo withdrawal. Remains on AWSS protocol - ativan via this protocol will help the tremors regardless of etiology. Tremors are improved. Cont gabapentin 400mg TID. Thiamine/folic acid/MVI supplementation. Appreciate psych consultation & recs from Dr Suero. Continue telemetry. (2) Opioid use disorder: Plan: Previous history of hydrocodone use for chronic LBP, followed by suboxone Rx for 4-5 years up until about 1-2 weeks ago. At that time he self-discontinued the suboxone abruptly. Appreciate recs from Dr Suero. Avoiding narcotics at this time for any pain issues. Use tylenol prn. Prednisone for bronchitis will also help any pain. (3) Numbness of right foot: Plan: acute or chronic DVT should not cause such. I believe the numbness is due to #[address] lumbar spine with significant L4-L5 and L5-S1 disease which could be causing his numbness. B12, TSH, mag all wnl. Gabapentin should help the numbness. Consider dose titration if necessary for optimal Rx of this symptom, but hold off for now. of note - he has EXCELLENT cap refill and pulses of right foot thus PAD/ischemia not suspected. (4) Degenerative lumbar spinal stenosis: Plan: known, chronic history of such. this is the reason for prior chronic opiate usage followed by suboxone. CT lumbar spine with significant L4-L5 disease as well as L5-S1 disease which could be contributing to his RLE symptoms. I suspect that the suboxone was controlling many of his chronic back/RLE symptoms and the abrupt cessation of suboxone is now allowing pain/numbness/etc to break through. 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 See #1 above (8) Anxiety and depression: Plan: Continue venlafaxine ER 37.5mg daily Continue remeron in nehemiah of trazodone Continue Zyprexa 5mg daily Defer med management to psych given the complexities of his mental health history and substance abuse history (9) Barretts esophagus: Plan: Cont daily PPI He is having upper abd discomfort - could be PUD, could be gastritis, could be biliary Cont PPI add carafate RUQ u/s - r/o gallstones if RUQ u/s is negative and pain persists then GI consult for consideration of EGD (10) HTN (hypertension): Plan: Continue lisinopril add metoprolol 25mg BID for refractory BPs (11) Back pain: Plan: Chronic lumbar back pain See above prednisone for bronchitis should help (12) DVT (deep venous thrombosis): Plan: h/o extensive RLE DVTs in 10/2020 per pt's recollection I have requested those records from [facility] The current doppler of his RLE suggests the 2 DVTs seen are chronic I am not convinced that his current RLE symptoms are from the DVTs; more concerned it is due to l-spine disease await records in meantime - lovenox 1mg/kg SC BID I reassured him that he has NO PEs and that the DVTs in the leg will receive adequate Rx with lovenox I cannot rule out that if the popliteal DVT is acute it is contributing to severe right ankle pain but doubt such (13) Acute bronchitis: Plan: cont bronchodilators CT chest findings are c/w bronchitis added symbicort 2 puffs BID added spiriva daily prednisone 40mg daily (14) Blood in stool: Plan: etiology? internal hemorrhoids vs diverticular disease vs other JOI negative follow clinically if it recurs consider CT a/p (15) Right ankle pain: Plan: 2nd to gout? CPPD? DVT? referred pain from l-spine? other? checked ankle x-rays -- negative uric acid, sed rate, crp not c/w inflammatory arthropathy if popliteal DVT is acute this could be cause of pain but doubt as that DVT would cause more popliteal fossa pain (16) Epigastric abdominal pain: Plan: biliary? gastric? other? cont PPI but check RUQ u/s as above add carafate qid Plan: PTDISHA Admission and Anticipated Discharge Date Admission Date: July 19, 2021 Subjective like yesterday again he has numerous complaints - 1. ongoing high epigastric abd pain - occurs a few minutes to 20 minutes post- prandial; no vomiting; still able to eat despite the pain 2. still with a little blood per rectum but not any worse than prior 3. ongoing R foot numbness 4. ongoing R foot/ankle pain 5. difficulty ambulating due to #4 - but patient IS indeed moving about the room 6. requests a colonoscopy 7. requests toenails to be clipped if possible 8. continues to cough although breathing is a bit better today Review of Systems Review of Systems: gen - no fevers, good appetite, no fatigue psych - anxious neuro - tremors, but improved cv - no cp pulm - ongoing cough/wheeze/congestion GI - no nausea; denies heartburn Physical Exam Physical Exam: gen - ongoing tremors but much better than a few days ago, no distress mouth - MMM neck - no JVD heart - RRR, s1 s2, no murmur; 1+ edema right leg, trace L leg lungs - wheezes b/l - ongoing - scantly better abd - soft ND BS+; tender high epigastric region once again; no RUQ pain skin - chronic stasis changes right aguero; cap refill right foot brisk; no cellulitis of RLE musculo - right knee, right ankle, right foot - no synovitis; I am able to passively flex/extend the ankle on right today w/o difficulty vascular - mild venous stasis of right distal leg & foot; DP and post tib pulses b/l feet 2+ psych - anxious Results & Data Results & Data ([facility]) Vital Signs (Past 12 Hours) Vital Signs Temp Pulse Pulse Resp BP Pulse Ox 07/21/21 22:25 16 97 07/21/21 20:06 36.8 C 108 H 20 152/88 H 94 07/21/21 15:52 37.0 C 94 H 20 127/71 96 07/21/21 15:25 90 16 95 07/21/21 14:53 91 H 07/21/21 11:32 36.9 C 89 18 151/106 H 95 Laboratory Results Laboratory Results - last 24 hr 07/21/21 07/21/21 07/21/21 05:31 05:31 07:23 Sodium 136 Potassium 4.9 D Chloride 102 Carbon Dioxide 24 Anion Gap 10 BUN 13 Creatinine 1.10 Est Cr Clr Drug Dosing 89.9 Est GFR ( Amer) 83.5 Est GFR (Non-Af Amer) 72.1 BUN/Creatinine Ratio 11.8 Glucose 149 H Calcium 10.8 H Iron 80 TIBC 345 Unsaturated IBC 265 Transferrin % Sat 23 Ferritin 117.8 Vitamin B12 Cancelled 845 Folate Cancelled > 22.30 PG Care Time/CCT Total # of Minutes Spent Total Time Spent with Patient: Total time spent is greater than 50% in coordination of care (as documented) at patient's floor/unit and/or counseling patient: Coding Level of Care Code 37804 Subseq Hosp Care Lvl 3 Diagnoses Alcohol withdrawal F10.239 Opioid use disorder F11.90 Numbness of right foot R20.0 Degenerative lumbar spinal stenosis M48.061 Spinal cord stimulator status Z96.89 Pancreatic cyst K86.2 Alcohol use disorder Anxiety and depression F41.9; F32.A Barretts esophagus K22.70 HTN (hypertension) I10 Back pain M54.9 DVT (deep venous thrombosis) I82.409 Acute bronchitis J20.9 Blood in stool K92.1 Right ankle pain M25.571 Epigastric abdominal pain R10.13
[2021-07-22] MEDS: LORazepam 1 MG TAB PO PRN ×6 (01:45→19:42)
[2021-07-22 05:49] LABS: Hematocrit (blood only) 38.8 % (42-52); Hemoglobin 13.8 g/dL (14.0-18.0); Mean Corpuscular Hemoglobin 33.4 pg (25-34); Mean Corpuscular Hgb Conc 35.6 g/dL (32-36); Mean Corpuscular Volume 93.9 fL (80-100); Mean Platelet Volume 8.7 fL (7.4-10.4); Platelet Count 320 K/uL (130-400); RDW Coefficient of Variation 13.9 % (11.5-14.5); RDW Standard Deviation 48.3 fL (36.4-46.3); Red Blood Count 4.13 M/uL (4.7-6.1); White Blood Count 10.91 K/uL (4.8-10.8)
[2021-07-22 06:07] LABS: Calcium 10.1 mg/dl (8.5-10.1); Est GFR (African American) 71.6 ml/min; Est GFR (Non-African American) 61.8 ml/min; Potassium 4.5 mmol/L (3.5-5.1)
[2021-07-22] MEDS: ACETAMINOPHEN 325 MG TAB PO PRN (07:04)
[2021-07-22] MEDS: ALBUTEROL HFA 8 GM INHALER INH SCH ×2 (07:25→19:11)
[2021-07-22] MEDS: AMOXICILLIN/CLAVULANATE 875 MG TAB PO SCH ×2 (08:00→17:09)
[2021-07-22] MEDS ORDERED: FUROSEMIDE 20 MG TAB PO ONE (08:44)
--- NOTE | 2021-07-22 09:01 | Ultrasound Report ---
US gallbladder CLINICAL HISTORY: post-prandial epigastric abdominal pain TECHNIQUE: Multiple real-time sonographic images of the right upper quadrant were obtained. Comparison: None available at the time of this dictation. FINDINGS: The liver is diffusely homogenous with normal contour and echogenicity. No focal mass lesions are se en. No intrahepatic ductal dilatation is seen. No gallstones or sludge are identified within the gallbladder. The gallbladder wall is not thickened. There is no pericholecystic fluid present. The co mmon duct measures 0.6 cm in diameter at the level of the hepatic artery. The visualized portions of the pancreas appear normal. The right kidney shows normal echogenicity, cortical thickness and renal contour. The right kidney sh ows no evidence of hydronephrosis or mass. No ascites or free fluid is seen in Keenan's pouch. IMPRESSION: Unremarkable right upper quadrant ultrasound. ACT 112: Negative or not required by law. Electronically signed by: Eliezer William M.D. 07/22/2021 8:59 AM
[2021-07-22] MEDS: SUCRALFATE 1 GM/10 ML UDC PO SCH ×4 (09:32→21:16)
[2021-07-22] MEDS: THIAMINE HCL 100 MG TAB PO SCH ×2 (09:34→21:20)
[2021-07-22] MEDS: METOPROLOL TARTRATE 25 MG TAB PO SCH (09:34)
[2021-07-22] MEDS: GABAPENTIN 400 MG CAP PO SCH ×3 (09:35→21:18)
[2021-07-22] MEDS: amLODIPine BESYLATE 5 MG TAB PO SCH (09:35)
[2021-07-22] MEDS: VENLAFAXINE HCL XR 37.5 MG CAPXR PO SCH ×2 (09:35→09:43)
[2021-07-22] MEDS: MULTIVITAMIN TAB PO SCH (09:36)
[2021-07-22] MEDS: PANTOprazole 40 MG TAB PO SCH (09:36)
[2021-07-22] MEDS: FOLIC ACID 1 MG TAB PO SCH (09:36)
[2021-07-22] MEDS: predniSONE 20 MG TAB PO SCH (09:38)
[2021-07-22] MEDS: CYANOCOBALAMIN (B-12) 500 MCG TABLET PO SCH (09:39)
[2021-07-22] MEDS: NICOTINE 21 MG/24 HR TDSY TD SCH (09:40)
[2021-07-22] MEDS: lisinopril 10 MG TAB PO SCH (09:40)
[2021-07-22] MEDS: FLUTICASONE/VILANTEROL 100/25MCG 14 PUFFS/INHALER INH SCH (09:44)
[2021-07-22] MEDS: ENOXAPARIN INJ 120 MG/0.8 ML SYR SQ SCH ×2 (09:44→21:21)
[2021-07-22] MEDS: UMECLIDINIUM BROMIDE 62.5MCG/BLISTER 7 PUFFS/INHALER INH SCH (09:44)
--- NOTE | 2021-07-22 12:28 | Psychiatric Progress Note ---
Date of Service July 22, 2021 Impression / Recommendations Impression 61 yo admitted medically for DVT after recent discontinuation of suboxone and alcohol withdrawal was being continued on Valium over the last 2 weeks as part of prolonged alcohol withdrawal taper. Diagnostically consistent with alcohol use disorder, no major mood symptoms. Suspect ongoing tremulousness and periods of anxiety are related to Valium taper. Recommended switch to ativan with AWSS for benzo withdrawal as this is safer in someone with history of heavy alcohol use. At this point risk of harm to self and others is low as he denies SI and HI and he remains motivated to return to residential substance use treatment once medically stable. Should be well outside the window for any acute opioid withdrawal side effects at this point and he denies any current symptoms of this. 07/22/21: Sleep has significantly improved with zyprexa and mirtazapine combination. Continue with AWSS for benzo withdrawal, scores going down, still with tremor-could consider use of propranolol if this persists. Increase Effexor XR to 75mg qd which he agrees to (will monitor to see if tremor worsens with this increase as sometimes Effexor can also contribute to tremor). (1) Alcohol use disorder: (2) Benzodiazepine withdrawal: -AWSS with lorazepam for scoring for benzo withdrawal -Continue gabapentin 400mg TID, melatonin, zyprexa, mirtazapine and Effexor XR, increase Effexor XR to 75mg for anxiety -Has symptomatic meds for opioid withdrawal but unlikely to need any at this point. -Psychiatrically stable to return to [facility] once medically stable Risk Factors Assessment Do You Have Access To A Gun?: No Interval History Identifying Information 61 yo man from [facility] with a history of alcohol use disorder, chronic back pain from lumbar spinal stenosis (most recently on suboxone 8mg BID up until ~3 weeks ago when he self-discontinued), hx DVT and PE admitted medically due to concern for DVT from [facility] residential alcohol use treatment program. Psychiatry was consulted for recommendations regarding his substance use withdrawal and medications. Chief Complaint "That worked better than anything I've tried yet". Review of Systems Notes see HPI, appetite stable Subjective Subjective Patient was seen & assessed and interval progress reviewed. Improved sleep last night with zyprexa and mirtazapine combo. Still reports some awakening due to right leg pain. Still feels anxious, would like more of the ativan, explained why this is contraindicated as would not help with his goal of avoiding any substances with addictive potential which he agrees with. Given ongoing anxiety he would like to increase Effexor dose. Had previous trial of Cymbalta, as could help with nerve pain, but he found it unhelpful. Physical Exam Psychiatric Orientation: oriented x 3 Apperance: appropriately dressed and appropriately groomed Eye Contact: good eye contact Motor Behavior: + tremor (bilateral resting ) Speech: normal rate/rhythm/volume of speech Affect: euthymic affect Mood: + anxious mood; no depressed mood Thought Process: goal directed thought process Thought Content: reality based without delusions Suicidal Thoughts: denies suicidal thoughts Homicidal Thoughts: denies homicidal thoughts Hallucinations: no auditory hallucinations and no visual hallucinations Cognition: attention grossly intact and language grossly intact Estimated Intelligence: consistent with education level Insight: + fair insight Judgement: + fair judgement Vital Signs (Past 24 Hours) Last Vital Signs Temp 37.0 C 07/22/21 11:46 Pulse 83 07/22/21 11:46 Resp 20 07/22/21 11:46 BP 156/87 H 07/22/21 11:46 Pulse Ox 94 07/22/21 11:46 Results & Data ([facility]) Laboratory Results Laboratory Results - last 24 hr 07/22/21 07/22/21 05:34 05:34 WBC 10.91 H RBC 4.13 L Hgb 13.8 L Hct 38.8 L MCV 93.9 MCH 33.4 MCHC 35.6 RDW Std Deviation 48.3 H RDW Coeff of Meeta 13.9 Plt Count 320 MPV 8.7 Sodium 136 Potassium 4.5 Chloride 101 Carbon Dioxide 26 Anion Gap 9 BUN 15 Creatinine 1.25 Est Cr Clr Drug Dosing 79.0 Est GFR ( Amer) 71.6 Est GFR (Non-Af Amer) 61.8 BUN/Creatinine Ratio 12.0 Glucose 86 Calcium 10.1 Current Inpatient Medications Current Inpatient Medications: Current Inpatient Medications Acetaminophen (Acetaminophen 325 Mg Tab) 650 mg PO Q4H PRN PRN Reason: pain/fever Stop: 08/17/21 22:27 Last Admin: 07/22/21 07:04 Dose: 650 mg Documented by: Albuterol (Albut/Ipratrop 3mg/0.5mg Neb 3 Ml Vial) 3 ml NEB Q4R PRN; Protocol PRN Reason: sob/wheezing Stop: 08/18/21 02:59 Albuterol (Albuterol Hfa 8 Gm Inhaler) 2 puffs INH BIDR NATHALIE; Protocol Stop: 08/21/21 18:59 Amlodipine Besylate (Amlodipine Besylate 5 Mg Tab) 5 mg PO DAILY [facility] Stop: 08/18/21 08:59 Last Admin: 07/22/21 09:35 Dose: 5 mg Documented by: Amoxicillin/Clavulanate Potassium (Amoxicillin/Clavulanate 875 Mg Tab) 1 tab PO BIDM NATHALIE Stop: 07/28/21 16:59 Last Admin: 07/22/21 08:00 Dose: 1 tab Documented by: Clonidine HCl (Clonidine Hcl 0.1 Mg Tab) 0.1 mg PO BID PRN PRN Reason: opioid withdrawal sx Stop: 08/18/21 16:32 Last Admin: 07/21/21 15:47 Dose: 0.1 mg Documented by: Cyanocobalamin (Cyanocobalamin (B-12) 500 Mcg Tablet) 1,000 mcg PO DAILY [facility] Stop: 08/18/21 08:59 Last Admin: 07/22/21 09:39 Dose: 1,000 mcg Documented by: Dicyclomine HCl (Dicyclomine Hcl 20 Mg Tab) 20 mg PO Q6H PRN PRN Reason: abdominal cramps Stop: 08/18/21 16:44 Enoxaparin Sodium (Enoxaparin Inj 120 Mg/0.8 Ml Syr) 111 mg SQ Q12H [facility] Stop: 08/18/21 08:59 Last Admin: 07/22/21 09:44 Dose: 111 mg Documented by: Fluticasone/Vilanterol (Fluticasone/Vilanterol 100/25mcg 14 Puffs/Inhaler) 1 puffs INH DAILY [facility] Stop: 08/20/21 08:59 Last Admin: 07/22/21 09:44 Dose: 1 puffs Documented by: Folic Acid (Folic Acid 1 Mg Tab) 1 mg PO DAILY [facility] Stop: 07/30/21 09:01 Last Admin: 07/22/21 09:36 Dose: 1 mg Documented by: Gabapentin (Gabapentin 400 Mg Cap) 400 mg PO TID [facility] Stop: 08/18/21 08:59 Last Admin: 07/22/21 09:35 Dose: 400 mg Documented by: Hydroxyzine HCl (Hydroxyzine Hcl 25 Mg Tab) 50 mg PO TID PRN PRN Reason: Anxiety Stop: 08/18/21 05:09 Last Admin: 07/21/21 20:56 Dose: 50 mg Documented by: Lisinopril (Lisinopril 10 Mg Tab) 10 mg PO DAILY NATHALIE Stop: 08/18/21 08:59 Last Admin: 07/22/21 09:40 Dose: 10 mg Documented by: Loperamide HCl (Loperamide Hcl 2 Mg Cap) 2 mg PO Q6H PRN PRN Reason: Diarrhea Stop: 08/18/21 16:32 Lorazepam (Lorazepam 1 Mg Tab) 1 - 3 mg PO UD PRN; Protocol PRN Reason: EtoH Withdrawal AWSS 6-10+ Stop: 08/18/21 17:34 Last Admin: 07/22/21 10:01 Dose: 2 mg Documented by: Melatonin (Melatonin 3 Mg Tab) 3 mg PO HS PRN PRN Reason: Insomnia Stop: 08/18/21 05:44 Last Admin: 07/21/21 20:56 Dose: 3 mg Documented by: Metoprolol Tartrate (Metoprolol Tartrate 25 Mg Tab) 25 mg PO BID NATHALIE Stop: 08/20/21 08:59 Last Admin: 07/22/21 09:34 Dose: 25 mg Documented by: Mirtazapine (Mirtazapine Tab 15 Mg Tab) 15 mg PO HS NATHALIE Stop: 08/19/21 20:59 Last Admin: 07/21/21 20:50 Dose: 15 mg Documented by: Miscellaneous (Remove Nicoderm Patch) 1 ea N/A QAM NATHALIE Stop: 08/18/21 08:59 Last Admin: 07/22/21 09:44 Dose: 1 ea Documented by: Multivitamins (Multivitamin Tab) 1 tab PO DAILY NATHALIE Stop: 08/18/21 08:59 Last Admin: 07/22/21 09:36 Dose: 1 tab Documented by: Nicotine (Nicotine 21 Mg/24 Hr Tdsy) 21 mg TD DAILY NATHALIE Stop: 08/19/21 08:59 Last Admin: 07/22/21 09:40 Dose: 21 mg Documented by: Olanzapine (Olanzapine 5 Mg Tablet) 5 mg PO HS NATHALIE Stop: 08/20/21 20:59 Last Admin: 07/21/21 20:49 Dose: 5 mg Documented by: Pantoprazole Sodium (Pantoprazole 40 Mg Tab) 40 mg PO DAILY [facility] Stop: 08/18/21 08:59 Last Admin: 07/22/21 09:36 Dose: 40 mg Documented by: Prednisone (Prednisone 20 Mg Tab) 40 mg PO DAILY NATHALIE Stop: 08/20/21 16:29 Last Admin: 07/22/21 09:38 Dose: 40 mg Documented by: Sucralfate (Sucralfate 1 Gm/10 Ml Udc) 1 gm PO QID NATHALIE Stop: 08/20/21 16:59 Last Admin: 07/22/21 09:32 Dose: 1 gm Documented by: Thiamine HCl (Thiamine Hcl 100 Mg Tab) 200 mg PO BID [facility] Stop: 08/20/21 08:59 Last Admin: 07/22/21 09:34 Dose: 200 mg Documented by: Umeclidinium [place] (Umeclidinium [place] 62.5mcg/Blister 7 Puffs/Inhaler) 1 puffs INH QAM [facility] Stop: 08/20/21 08:59 Last Admin: 07/22/21 09:44 Dose: 1 puffs Documented by: Venlafaxine HCl (Venlafaxine Hcl Xr 37.5 Mg Capxr) 37.5 mg PO DAILY [facility] Stop: 08/18/21 08:59 Last Admin: 07/22/21 09:43 Dose: 37.5 mg Documented by:
[2021-07-22] MEDS ORDERED: VENLAFAXINE HCL XR 37.5 MG CAPXR PO ONE (12:29)
[2021-07-22] MEDS: METOPROLOL TARTRATE 50 MG TAB PO SCH (21:15)
[2021-07-22] MEDS: hydrOXYzine HCl 25 MG TAB PO PRN (21:15)
[2021-07-22] MEDS: MIRTAZAPINE TAB 15 MG TAB PO SCH (21:18)
[2021-07-22] MEDS: OLANZapine 5 MG TABLET PO SCH (21:20)
--- NOTE | 2021-07-22 23:37 | Hospitalist Progress Note ---
Date of Service July 22, 2021 Assessment & Plan (1) Alcohol withdrawal: Plan: Per documentation from [facility] his last documented drink was 07/13/21. However, his self-reported timeline would suggest his last drink was 10+ days ago. Tremors could be etoh withdrawal, opiate withdrawal, or benzo withdrawal. Remains on AWSS protocol - ativan via this protocol will help the tremors regardless of etiology. Tremors are improved. He is requiring about 5-6 doses of ativan on daily basis while here. Cont gabapentin 400mg TID. Thiamine/folic acid/MVI supplementation. Appreciate psych consultation & recs from Dr Suero. Continue telemetry. (2) Opioid use disorder: Plan: Previous history of hydrocodone use for chronic LBP, followed by suboxone Rx for 4-5 years up until about 1-2 weeks ago. At that time he self-discontinued the suboxone abruptly. Appreciate recs from Dr Suero. Avoiding narcotics at this time for any pain issues. Use tylenol prn. Prednisone for bronchitis will also help any pain. (3) Numbness of right foot: Plan: acute or chronic DVT should not cause such. I believe the numbness is due to #4 below. Today his numbness is the medial R foot c/w L5 radiculopathy. CT lumbar spine with significant L4-L5 and L5-S1 disease. He had previous L4-L5 surgery to his recollection. He also has nerve stimulator device implanted. B12, TSH, mag all wnl. Gabapentin should help the numbness. Consider dose titration if necessary for optimal Rx of this symptom, but hold off for now. of note - he has EXCELLENT cap refill and pulses of right foot thus PAD/ischemia not suspected. (4) Degenerative lumbar spinal stenosis: Plan: known, chronic history of such. this is the reason for prior chronic opiate usage followed by suboxone. CT lumbar spine with significant L4-L5 disease as well as L5-S1 disease which is contributing to his RLE symptoms, especially the L4-L5 disc disease (see #3 above). I suspect that the suboxone was controlling many of his chronic back/RLE symptoms and the abrupt cessation of suboxone is now allowing pain to break through. 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 See #1 above (8) Anxiety and depression: Plan: Continue venlafaxine ER 37.5mg daily Continue remeron in nehemiah of trazodone Continue Zyprexa 5mg daily Continue atarax prn. Continue melatonin HR prn sleep. Defer med management to psych given the complexities of his mental health history and substance abuse history (9) Barretts esophagus: Plan: He is having upper abd discomfort - could be PUD, could be gastritis. RUQ u/s negative for gallstones or any biliary cause of symptoms. Cont PPI - could increase to twice daily if the added carafate is not enough. Cont QID carafate. If symptoms remain refractory would need to consult GI. (10) HTN (hypertension): Plan: Uncontrolled Increase metoprolol to 50mg BID Continue lisinopril (11) Back pain: Plan: Chronic lumbar back pain See above prednisone for bronchitis should help (12) DVT (deep venous thrombosis): Plan: h/o extensive RLE DVTs in 10/2020 per pt's recollection I have requested those records from [facility] in [facility] confirmed with HIM today that they have called the [facility] for the records The current doppler of his RLE suggests here at [facility] states the 2 DVTs seen are chronic I am not convinced that his current RLE symptoms are from the DVTs; more concerned it is due to lumbar spine disease await records in meantime - lovenox 1mg/kg SC BID I reassured him that he has NO PEs and that the DVTs in the leg will receive adequate Rx with lovenox (regardless if acute or chronic) I cannot rule out that if the popliteal DVT is acute it is contributing to severe right ankle pain but doubt such (13) Acute bronchitis: Plan: cont bronchodilators CT chest findings are c/w bronchitis added symbicort 2 puffs BID added spiriva daily prednisone 40mg daily cont albuterol 2 puffs scheduled BID incentive layla (14) Blood in stool: Plan: etiology? internal hemorrhoids vs diverticular disease vs other JOI negative follow clinically if it recurs consider CT a/p or GI consult H/H have been stable (15) Right ankle pain: Plan: 2nd to gout? CPPD? DVT? referred pain from lumbar spine? other? checked ankle x-rays -- negative uric acid, sed rate, crp not c/w inflammatory arthropathy if popliteal DVT is acute this could be cause of pain but doubt as that DVT would cause more popliteal fossa pain pain continues to improve with current care plan patient now able to ambulate the hallways with a walker without any additional assistance cont to monitor (16) Epigastric abdominal pain: Plan: suspect gastritis see above under "[facility]" Plan: constipation - add colace/senna/miralax PT, OT evals requested await records from [facility] dispo - [facility] [place] ([place] for ongoing polysubstance use Admission and Anticipated Discharge Date Admission Date: July 19, 2021 Subjective patient again with multiple complaints like prior days - 1. right foot numbness - IS improved; he can feel the lateral aspect of the foot, but the instep is still numb 2. right ankle/distal aguero pain - improved; able to walk the hallways today with a walker on his own without assistance 3. edema - RLE - improved 4. epigastric pain - slightly better; not hindering his ability to eat, however; denies nausea/emesis 5. feels constipated; slight bright red blood today but minimal 6. still with cough and mild WOLF but improved with inhalers 7. shakes/anxiety - still present but feels it is "getting there" tele overnight wnl/NSR Review of Systems Review of Systems: gen - no fevers, no chills, good appetite, energy decent cv - no chest pain pulm - coughing, mild wheezing, mild congestion, mild WOLF GI - see HPI; no emesis; no diarrhea Physical Exam Physical Exam: gen - ongoing tremors - similar to prior visits mouth - MMM neck - no JVD heart - RRR, s1 s2, no murmur; 1+ edema right leg - improved; no edema L leg lungs - wheezes b/l with fair airation; occasional crackle abd - soft ND BS+; tender high epigastric region once again but improved from prior exams; no RUQ pain skin - chronic stasis changes right aguero; cap refill right foot brisk; scattered areas of irregular appearing erythema on foot/ankle but not c/w cellulitis, embolic phenomenon, etc. musculo - right knee, right ankle, right foot - no synovitis; I am able to passively flex/extend the ankle on right today again w/o difficulty; not tender to palpation over right ankle today vascular - popliteal pulse on right 2+; DP and post tib pulses b/l feet 2+ psych - no DTs; a/o x 3 Results & Data Results & Data ([facility]) Vital Signs (Past 12 Hours) Vital Signs Temp Pulse Pulse Resp BP Pulse Ox 07/22/21 23:06 91 H 07/22/21 22:42 36.6 C 90 16 133/74 91 07/22/21 20:10 36.8 C 115 H 36 H 143/81 H 95 07/22/21 19:12 113 H 19 95 07/22/21 15:31 37.3 C 102 H 20 167/95 H 94 07/22/21 11:46 37.0 C 83 20 156/87 H 94 Laboratory Results Laboratory Results - last 24 hr 07/22/21 07/22/21 05:34 05:34 WBC 10.91 H RBC 4.13 L Hgb 13.8 L Hct 38.8 L MCV 93.9 MCH 33.4 MCHC 35.6 RDW Std Deviation 48.3 H RDW Coeff of Meeta 13.9 Plt Count 320 MPV 8.7 Sodium 136 Potassium 4.5 Chloride 101 Carbon Dioxide 26 Anion Gap 9 BUN 15 Creatinine 1.25 Est Cr Clr Drug Dosing 79.0 Est GFR ( Amer) 71.6 Est GFR (Non-Af Amer) 61.8 BUN/Creatinine Ratio 12.0 Glucose 86 Calcium 10.1 PG Care Time/CCT Total # of Minutes Spent Total Time Spent with Patient: Total time spent is greater than 50% in coordination of care (as documented) at patient's floor/unit and/or counseling patient: Coding Level of Care Code 65356 Subseq Hosp Care Lvl 3 Diagnoses Alcohol withdrawal F10.239 Opioid use disorder F11.90 Numbness of right foot R20.0 Degenerative lumbar spinal stenosis M48.061 Spinal cord stimulator status Z96.89 Pancreatic cyst K86.2 Alcohol use disorder Anxiety and depression F41.9; F32.A Barretts esophagus K22.70 HTN (hypertension) I10 Back pain M54.9 DVT (deep venous thrombosis) I82.409 Acute bronchitis J20.9 Blood in stool K92.1 Right ankle pain M25.571 Epigastric abdominal pain R10.13
[2021-07-23] MEDS: LORazepam 1 MG TAB PO PRN ×6 (02:05→23:41)
[2021-07-23] MEDS: ACETAMINOPHEN 325 MG TAB PO PRN ×2 (05:35→18:38)
[2021-07-23 06:34] LABS: BUN Creatinine Ratio 12.2 (10-20); Calcium 9.4 mg/dl (8.5-10.1); Creatinine Clr Calc Pharmacy 75.4 ml/min; Est GFR (African American) 67.6 ml/min; Est GFR (Non-African American) 58.3 ml/min; Potassium 4.2 mmol/L (3.5-5.1)
[2021-07-23] MEDS: ALBUTEROL HFA 8 GM INHALER INH SCH ×2 (07:02→19:33)
[2021-07-23] MEDS ORDERED: ONDANSETRON INJ 2 MG/ML 2 ML VIAL IV PRN (07:44)
--- NOTE | 2021-07-23 07:57 | Hospitalist Progress Note ---
Date of Service July 23, 2021 Assessment & Plan (1) Alcohol withdrawal: Plan: Per documentation from [facility] his last documented drink was 07/13/21. Tremors could be etoh withdrawal, opiate withdrawal, or benzo withdrawal. Remains on AWSS protocol -Tremors are improved. Cont gabapentin 400mg TID. Thiamine/folic acid/MVI supplementation. Appreciate psych consultation & recs from Dr Suero, Continue gabapentin 400mg TID, melatonin, zyprexa, mirtazapine and Effexor XR,increase Effexor XR to 75mg for anxiety also suggest possible propranolol for tremor, and they are signing off, will hold on additional medicine at this time (2) Opioid use disorder: Plan: Previous history of hydrocodone use for chronic LBP, followed by suboxone Rx for 4-5 years up until about 1-2 weeks ago. At that time he self-discontinued the suboxone abruptly. Avoiding narcotics at this time for any pain issues. Use tylenol,Prednisone for bronchitis will also help any pain. (3) Anxiety and depression: Plan: Continue venlafaxine ER 37.5mg daily Continue remeron in nehemiah of trazodone Continue Zyprexa 5mg daily (4) Degenerative lumbar spinal stenosis: Plan: CT lumbar spine with significant L4-L5 and L5-S1 disease which could be causing his foot numbness. spinal chord stimulator Gabapentin. Consider dose titration prednisone for bronchitis may also lessen sx some ankle pain checked ankle x-rays -- negative uric acid, sed rate, crp negative (5) Acute bronchitis: Plan: CT chest findings are c/w bronchitis on augmentin bronchodilators added symbicort, spiriva daily prednisone 40mg daily taper dose maybe affecting tremor (6) Barretts esophagus: Plan: Cont daily PPI He is having upper abd discomfort - Cont PPI add carafate RUQ u/s -07/22 negative (7) HTN (hypertension): Plan: Continue lisinopril added metoprolol 25mg BID (8) DVT (deep venous thrombosis): Plan: h/o extensive RLE DVTs in 10/2020 per pt The current doppler of his RLE suggests the 2 DVTs are chronic - lovenox 1mg/kg SC BID I reassured him that he has NO PEs and that the DVTs in the leg will receive adequate Rx with lovenox, eventual return to chronic anticoagulation as is risk for recurrence wtih chronic DVT changes seem and chronic LE swelling (9) Pancreatic cyst: Plan: CT Chest incidentally demonstrating "12 mm simple cystic lesion in the distal pancreas, 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" Will need f/u for such post-d/c Plan: PT, OT evals Admission and Anticipated Discharge Date Admission Date: July 19, 2021 Subjective pt has a rambling speech style and some tremor that maybe more essential tremor than withdrawal, states has some improved foot sensation now that he is wearing shoes to walk Review of Systems Review of Systems: Mild distress and fatigue no headache, no visual changes no speech or swallowing issues no chest pain, pressure or palpitations no shortness of breath, cough or wheezes no abdominal pain, nausea or vomiting, diarrhea or constipation no dysuria, hematuria or frequency no focal joint pain or swelling no back pain, CVA tenderness or radicular pain no bruising, bleeding or rashes Focally complains of right foot numbness or decreased sensation this is not new for him Points of anxiety tremor and substance withdrawal from both alcohol and Suboxone Physical Exam Physical Exam: The patient appeared well nourished and normally developed. He has pressured speech and tremulous hands Vital signs as documented. Head exam is normocephalic atraumatic Neck is without JVD, thyromegaly, or carotid bruits. Lungs are clear to auscultation, no focal loss of breath sounds Cardiac exam, Rhythm is regular.. No murmurs, rubs or gallops. Abdominal exam reveals normal bowel sounds, soft non tender, no masses Extremities are nonedematous and both pedal pulses are present Neurologic exam is alert and oriented, subjective complaints of stocking style altered sensation of his right foot from the midfoot down Skin is without bruises or rashes Psychologically is with concerns for anxiety & depression.. Results & Data Results & Data ([facility]) Vital Signs (Past 12 Hours) Vital Signs Temp Pulse Pulse Resp BP Pulse Ox 07/23/21 07:04 77 18 94 07/23/21 03:45 97.7 F 68 18 169/97 H 95 07/23/21 02:00 97.5 F L 88 20 141/87 H 95 07/22/21 23:06 91 H 07/22/21 22:42 97.9 F 90 16 133/74 91 07/22/21 20:10 98.2 F 115 H 36 H 143/81 H 95 PG Care Time/CCT Total # of Minutes Spent Total Time Spent with Patient: Total time spent is greater than 50% in coordination of care (as documented) at patient's floor/unit and/or counseling patient: Coding Level of Care Code 56140 Subseq Hosp Care Lvl 3 Diagnoses Alcohol withdrawal F10.239 Opioid use disorder F11.90 Degenerative lumbar spinal stenosis M48.061 Pancreatic cyst K86.2 Anxiety and depression F41.9; F32.A Barretts esophagus K22.70 HTN (hypertension) I10 DVT (deep venous thrombosis) I82.409 Acute bronchitis J20.9
[2021-07-23] MEDS: lisinopril 10 MG TAB PO SCH (08:27)
[2021-07-23] MEDS: PANTOprazole 40 MG TAB PO SCH (08:27)
[2021-07-23] MEDS: GABAPENTIN 400 MG CAP PO SCH ×3 (08:27→20:03)
[2021-07-23] MEDS: AMOXICILLIN/CLAVULANATE 875 MG TAB PO SCH ×2 (08:28→18:40)
[2021-07-23] MEDS: VENLAFAXINE HCL XR 75 MG CAPXR PO SCH (08:28)
[2021-07-23] MEDS: amLODIPine BESYLATE 5 MG TAB PO SCH (08:28)
[2021-07-23] MEDS: CYANOCOBALAMIN (B-12) 500 MCG TABLET PO SCH (08:29)
[2021-07-23] MEDS: FOLIC ACID 1 MG TAB PO SCH (08:30)
[2021-07-23] MEDS: METOPROLOL TARTRATE 50 MG TAB PO SCH ×2 (08:30→20:05)
[2021-07-23] MEDS: hydrOXYzine HCl 25 MG TAB PO PRN (08:30)
[2021-07-23] MEDS: SUCRALFATE 1 GM/10 ML UDC PO SCH ×4 (08:30→20:04)
[2021-07-23] MEDS: predniSONE 20 MG TAB PO SCH (08:30)
[2021-07-23] MEDS: MULTIVITAMIN TAB PO SCH (08:30)
[2021-07-23] MEDS: ENOXAPARIN INJ 120 MG/0.8 ML SYR SQ SCH ×2 (08:31→20:03)
[2021-07-23] MEDS: NICOTINE 21 MG/24 HR TDSY TD SCH (08:32)
[2021-07-23] MEDS: THIAMINE HCL 100 MG TAB PO SCH ×2 (08:33→20:04)
[2021-07-23] MEDS: FLUTICASONE/VILANTEROL 100/25MCG 14 PUFFS/INHALER INH SCH (08:33)
[2021-07-23] MEDS: UMECLIDINIUM BROMIDE 62.5MCG/BLISTER 7 PUFFS/INHALER INH SCH (08:34)
[2021-07-23] MEDS ORDERED: diazePAM 5 MG TABLET PO SCH (09:00)
[2021-07-23] MEDS: POLYETHYLENE (MIRALAX) 17 GM PACK PO SCH (11:24)
[2021-07-23] MEDS: DOCUSATE SODIUM/SENNA 50/8.6MG TAB PO SCH (11:24)
--- NOTE | 2021-07-23 15:38 | Psychiatric Progress Note ---
Date of Service July 23, 2021 Impression / Recommendations Impression 61 yo admitted medically for DVT after recent discontinuation of suboxone and alcohol withdrawal was being continued on Valium over the last 2 weeks as part of prolonged alcohol withdrawal taper. Diagnostically consistent with alcohol use disorder, no major mood symptoms. Suspect ongoing tremulousness and periods of anxiety are related to Valium taper. Recommended switch to ativan with AWSS for benzo withdrawal as this is safer in someone with history of heavy alcohol use. At this point risk of harm to self and others is low as he denies SI and HI and he remains motivated to return to residential substance use treatment once medically stable. Should be well outside the window for any acute opioid withdrawal side effects at this point and he denies any current symptoms of this. 07/23/21: Sleep and mood are stable, still with some insomnia but improvement with mirtazapine and zyprexa. Continue with AWSS for benzo withdrawal, scores going down, still with tremor-could consider use of propranolol if this persists. Tolerating higher dose of Effexor without any side effects, further adjustments can be made at [facility] as needed. (1) Alcohol use disorder: (2) Benzodiazepine withdrawal: -AWSS with lorazepam for scoring for benzo withdrawal -Continue gabapentin 400mg TID, melatonin, zyprexa, mirtazapine and Effexor XR -Could consider propranolol for further tremor relief as this remains his most bothersome symptom -Has symptomatic meds for opioid withdrawal but unlikely to need any at this point. -Psychiatrically stable to return to [facility] once medically stable Risk Factors Assessment Do You Have Access To A Gun?: No Interval History Identifying Information 61 yo man from [facility] with a history of alcohol use disorder, chronic back pain from lumbar spinal stenosis (most recently on suboxone 8mg BID up until ~3 weeks ago when he self-discontinued), hx DVT and PE admitted medically due to concern for DVT from [facility] residential alcohol use treatment program. Psychiatry was consulted for recommendations regarding his substance use withdrawal and medications. Chief Complaint "I need the 2mg of ativan, I'll taper it at [facility]". Subjective Subjective Patient was seen & assessed and interval progress reviewed. Continues to have some difficulty sleeping but likes having zyprexa at bedtime. Reviewed that sleep disruption tends to occur after stopping alcohol and that ongoing focus on sleep hygiene habits will also be helpful and something he will be practicing while at [facility]. He remains very focused on recovery and plan of returning to [facility]. Continues to have tremor which he feels gets better with 2mg of ativan but not 1mg. Reviewed AWSS and goal of utilizing lowest dose of ativan possible for relief. He hasn't noticed any side effects from the Effexor increase and feels the tremor is getting a bit better and was not worsened at all by Effexor dose increase. Continues to deny SI and remains very future- oriented. Physical Exam Psychiatric Orientation: oriented x 3 Apperance: appropriately dressed and appropriately groomed Eye Contact: good eye contact Motor Behavior: + tremor (bilateral resting ) Speech: normal rate/rhythm/volume of speech Affect: euthymic affect Mood: + anxious mood; no depressed mood Thought Process: + circumstantial thought process Thought Content: reality based without delusions Suicidal Thoughts: denies suicidal thoughts Homicidal Thoughts: denies homicidal thoughts Hallucinations: no auditory hallucinations and no visual hallucinations Cognition: attention grossly intact and language grossly intact Estimated Intelligence: consistent with education level Insight: + fair insight Judgement: + fair judgement Vital Signs (Past 24 Hours) Last Vital Signs Temp 37.1 C 07/23/21 12:00 Pulse 85 07/23/21 14:18 Resp 18 07/23/21 12:00 BP 147/93 H 07/23/21 12:00 Pulse Ox 95 07/23/21 12:00 Results & Data ([facility]) Laboratory Results Laboratory Results - last 24 hr 07/23/21 05:55 Sodium 136 Potassium 4.2 Chloride 101 Carbon Dioxide 28 Anion Gap 7 BUN 16 Creatinine 1.31 Est Cr Clr Drug Dosing 75.4 Est GFR ( Amer) 67.6 Est GFR (Non-Af Amer) 58.3 BUN/Creatinine Ratio 12.2 Glucose 88 Calcium 9.4 Current Inpatient Medications Current Inpatient Medications: Current Inpatient Medications Acetaminophen (Acetaminophen 325 Mg Tab) 650 mg PO Q4H PRN PRN Reason: pain/fever Stop: 08/17/21 22:27 Last Admin: 07/23/21 05:35 Dose: 650 mg Documented by: Albuterol (Albut/Ipratrop 3mg/0.5mg Neb 3 Ml Vial) 3 ml NEB Q4R PRN; Protocol PRN Reason: sob/wheezing Stop: 08/18/21 02:59 Albuterol (Albuterol Hfa 8 Gm Inhaler) 2 puffs INH BIDR NATHALIE; Protocol Stop: 08/21/21 18:59 Last Admin: 07/23/21 07:02 Dose: 2 puffs Documented by: Amlodipine Besylate (Amlodipine Besylate 5 Mg Tab) 5 mg PO DAILY NATHALIE Stop: 08/18/21 08:59 Last Admin: 07/23/21 08:28 Dose: 5 mg Documented by: Amoxicillin/Clavulanate Potassium (Amoxicillin/Clavulanate 875 Mg Tab) 1 tab PO BIDM NATHALIE Stop: 07/28/21 16:59 Last Admin: 07/23/21 08:28 Dose: 1 tab Documented by: Clonidine HCl (Clonidine Hcl 0.1 Mg Tab) 0.1 mg PO BID PRN PRN Reason: opioid withdrawal sx Stop: 08/18/21 16:32 Last Admin: 07/21/21 15:47 Dose: 0.1 mg Documented by: Cyanocobalamin (Cyanocobalamin (B-12) 500 Mcg Tablet) 1,000 mcg PO DAILY [facility] Stop: 08/18/21 08:59 Last Admin: 07/23/21 08:29 Dose: 1,000 mcg Documented by: Dicyclomine HCl (Dicyclomine Hcl 20 Mg Tab) 20 mg PO Q6H PRN PRN Reason: abdominal cramps Stop: 08/18/21 16:44 Enoxaparin Sodium (Enoxaparin Inj 120 Mg/0.8 Ml Syr) 111 mg SQ Q12H [facility] Stop: 08/18/21 08:59 Last Admin: 07/23/21 08:31 Dose: 111 mg Documented by: Fluticasone/Vilanterol (Fluticasone/Vilanterol 100/25mcg 14 Puffs/Inhaler) 1 puffs INH DAILY NATHALIE Stop: 08/20/21 08:59 Last Admin: 07/23/21 08:33 Dose: 1 puffs Documented by: Folic Acid (Folic Acid 1 Mg Tab) 1 mg PO DAILY [facility] Stop: 07/30/21 09:01 Last Admin: 07/23/21 08:30 Dose: 1 mg Documented by: Gabapentin (Gabapentin 400 Mg Cap) 400 mg PO TID NATHALIE Stop: 08/18/21 08:59 Last Admin: 07/23/21 13:23 Dose: 400 mg Documented by: Hydroxyzine HCl (Hydroxyzine Hcl 25 Mg Tab) 50 mg PO TID PRN PRN Reason: Anxiety Stop: 08/18/21 05:09 Last Admin: 07/23/21 08:30 Dose: 50 mg Documented by: Lisinopril (Lisinopril 10 Mg Tab) 10 mg PO DAILY NATHALIE Stop: 08/18/21 08:59 Last Admin: 07/23/21 08:27 Dose: 10 mg Documented by: Loperamide HCl (Loperamide Hcl 2 Mg Cap) 2 mg PO Q6H PRN PRN Reason: Diarrhea Stop: 08/18/21 16:32 Lorazepam (Lorazepam 1 Mg Tab) 1 - 3 mg PO UD PRN; Protocol PRN Reason: EtoH Withdrawal AWSS 6-10+ Stop: 08/18/21 17:34 Last Admin: 07/23/21 12:16 Dose: 1 mg Documented by: Melatonin (Melatonin 3 Mg Tab) 3 mg PO HS PRN PRN Reason: Insomnia Stop: 08/18/21 05:44 Last Admin: 07/21/21 20:56 Dose: 3 mg Documented by: Metoprolol Tartrate (Metoprolol Tartrate 50 Mg Tab) 50 mg PO BID [facility] Stop: 08/21/21 20:59 Last Admin: 07/23/21 08:30 Dose: 50 mg Documented by: Mirtazapine (Mirtazapine Tab 15 Mg Tab) 15 mg PO HS [facility] Stop: 08/19/21 20:59 Last Admin: 07/22/21 21:18 Dose: 15 mg Documented by: Miscellaneous (Remove Nicoderm Patch) 1 ea N/A QAM [facility] Stop: 08/18/21 08:59 Last Admin: 07/23/21 08:33 Dose: Not Given Documented by: Multivitamins (Multivitamin Tab) 1 tab PO DAILY [facility] Stop: 08/18/21 08:59 Last Admin: 07/23/21 08:30 Dose: 1 tab Documented by: Nicotine (Nicotine 21 Mg/24 Hr Tdsy) 21 mg TD DAILY [facility] Stop: 08/19/21 08:59 Last Admin: 07/23/21 08:32 Dose: 21 mg Documented by: Olanzapine (Olanzapine 5 Mg Tablet) 5 mg PO HS [facility] Stop: 08/20/21 20:59 Last Admin: 07/22/21 21:20 Dose: 5 mg Documented by: Ondansetron HCl (Ondansetron Inj 2 Mg/Ml 2 Ml Vial) 4 mg IV Q6H PRN PRN Reason: Nausea And Vomiting Stop: 08/22/21 07:43 Pantoprazole Sodium (Pantoprazole 40 Mg Tab) 40 mg PO DAILY NATHALIE Stop: 08/18/21 08:59 Last Admin: 07/23/21 08:27 Dose: 40 mg Documented by: Polyethylene Glycol (Polyethylene (Miralax) 17 Gm Pack) 17 gm PO DAILY [facility] Stop: 08/22/21 09:59 Last Admin: 07/23/21 11:24 Dose: 17 gm Documented by: Prednisone (Prednisone 20 Mg Tab) 40 mg PO DAILY [facility] Stop: 08/20/21 16:29 Last Admin: 07/23/21 08:30 Dose: 40 mg Documented by: Senna/Docusate Sodium (Docusate Sodium/Senna 50/8.6mg Tab) 1 tab PO QAM [facility] Stop: 08/22/21 09:59 Last Admin: 07/23/21 11:24 Dose: 1 tab Documented by: Sucralfate (Sucralfate 1 Gm/10 Ml Udc) 1 gm PO QID [facility] Stop: 08/20/21 16:59 Last Admin: 07/23/21 13:22 Dose: 1 gm Documented by: Thiamine HCl (Thiamine Hcl 100 Mg Tab) 200 mg PO BID [facility] Stop: 08/20/21 08:59 Last Admin: 07/23/21 08:33 Dose: 200 mg Documented by: Umeclidinium [place] (Umeclidinium [place] 62.5mcg/Blister 7 Puffs/Inhaler) 1 puffs INH QAM [facility] Stop: 08/20/21 08:59 Last Admin: 07/23/21 08:34 Dose: 1 puffs Documented by: Venlafaxine HCl (Venlafaxine Hcl Xr 75 Mg Capxr) 75 mg PO DAILY [facility] Stop: 08/22/21 08:59 Last Admin: 07/23/21 08:28 Dose: 75 mg Documented by:
[2021-07-23] MEDS: OLANZapine 5 MG TABLET PO SCH (20:05)
[2021-07-23] MEDS: MIRTAZAPINE TAB 15 MG TAB PO SCH (20:06)
[2021-07-24] MEDS ORDERED: LORazepam 1 MG TAB PO STA (05:00)
[2021-07-24] MEDS: LORazepam 1 MG TAB PO PRN ×5 (05:04→20:58)
[2021-07-24] MEDS: ALBUTEROL HFA 8 GM INHALER INH SCH ×2 (07:10→19:53)
--- NOTE | 2021-07-24 07:41 | Hospitalist Progress Note ---
Date of Service July 24, 2021 Assessment & Plan (1) Alcohol withdrawal: Plan: Per documentation from [facility]Drug rehab his last documented drink was 07/13/21. Tremors now seem to be more of and essential tremor Remains on AWSS protocol -Tremors are improved. Cont gabapentin 400mg TID. Thiamine/folic acid/MVI supplementation. Appreciate psych consultation & recs from Dr Suero, Continue gabapentin 400mg TID, melatonin, zyprexa, mirtazapine and Effexor XR,increase Effexor XR to 75mg for anxiety also suggest possible propranolol for tremor, and they are signing off, will hold on additional medicine at this time as pt is on metoprolol (2) Opioid use disorder: Plan: Previous history of hydrocodone use for chronic LBP, followed by suboxone Rx for 4-5 years up until about 1-2 weeks ago. At that time he self-discontinued the suboxone abruptly. Avoiding narcotics at this time for any pain issues. Use tylenol, (3) Anxiety and depression: Plan: Continue venlafaxine ER 37.5mg daily Continue remeron in [place] of trazodone Continue Zyprexa 5mg daily (4) Degenerative lumbar spinal stenosis: Plan: CT lumbar spine with significant L4-L5 and L5-S1 disease which could be causing his foot numbness. spinal chord stimulator Gabapentin. Consider dose titration prednisone for bronchitis may also lessen sx some ankle pain checked ankle x-rays -- negative uric acid, sed rate, crp negative (5) Acute bronchitis: Plan: CT chest findings are c/w bronchitis on augmentin bronchodilators added symbicort, spiriva daily prednisone taper dose maybe affecting tremor (6) Barretts esophagus: Plan: Cont daily PPI He is having upper abd discomfort - Cont PPI add carafate RUQ u/s -07/22 negative (7) HTN (hypertension): Plan: Continue lisinopril added metoprolol 25mg BID (8) DVT (deep venous thrombosis): Plan: h/o extensive RLE DVTs in 10/2020 per pt The current doppler of his RLE suggests the 2 DVTs are chronic - lovenox 1mg/kg SC BID since pt feels great improvement of leg swelling will discharge on therapeutic eilqis as 10 bid for one week then return to the 5 bid (9) Pancreatic cyst: Plan: CT Chest incidentally demonstrating "12 mm simple cystic lesion in the distal pancreas, 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" Will need f/u for such post when returns to pcp Plan: PT, OT heidyals Admission and Anticipated Discharge Date Admission Date: July 19, 2021 Subjective pt has a rambling speech style and some tremor that maybe more essential tremor than withdrawal, states has some improved foot sensation now that he is wearing shoes to walk he feels more stable and if continues on this trend anticipate discharge in the next few days Review of Systems Review of Systems: Mild distress and fatigue no headache, no visual changes no speech or swallowing issues no chest pain, pressure or palpitations no shortness of breath, cough or wheezes no abdominal pain, nausea or vomiting, diarrhea or constipation no dysuria, hematuria or frequency no focal joint pain or swelling no back pain, CVA tenderness or radicular pain no bruising, bleeding or rashes Focally complains of right foot numbness or decreased sensation this is not new for him Points of anxiety tremor and substance withdrawal from both alcohol and Suboxone Physical Exam Physical Exam: The patient appeared well nourished and normally developed. He has pressured speech and tremulous hands Vital signs as documented. Head exam is normocephalic atraumatic Neck is without JVD, thyromegaly, or carotid bruits. Lungs are clear to auscultation, no focal loss of breath sounds Cardiac exam, Rhythm is regular.. No murmurs, rubs or gallops. Abdominal exam reveals normal bowel sounds, soft non tender, no masses Extremities are nonedematous and both pedal pulses are present Neurologic exam is alert and oriented, subjective complaints of stocking style altered sensation of his right foot from the midfoot down Skin is without bruises or rashes Psychologically is with concerns for anxiety & depression.. Results & Data Results & Data ([facility]) Vital Signs (Past 12 Hours) Vital Signs Temp Pulse Pulse Resp BP Pulse Ox 07/24/21 07:10 98 H 16 96 07/24/21 04:02 97.9 F 65 18 150/70 H 97 07/24/21 00:00 82 07/23/21 23:22 97.9 F 64 18 166/93 H 93 PG Care Time/CCT Total # of Minutes Spent Total Time Spent with Patient: Total time spent is greater than 50% in coordination of care (as documented) at patient's floor/unit and/or counseling patient: Coding Level of Care Code 55856 Subseq Hosp Care Lvl 2 Diagnoses Alcohol withdrawal F10.239 Opioid use disorder F11.90 Anxiety and depression F41.9; F32.A Degenerative lumbar spinal stenosis M48.061 Acute bronchitis J20.9 Barretts esophagus K22.70 HTN (hypertension) I10 DVT (deep venous thrombosis) I82.409 Pancreatic cyst K86.2
[2021-07-24] MEDS: UMECLIDINIUM BROMIDE 62.5MCG/BLISTER 7 PUFFS/INHALER INH SCH (08:41)
[2021-07-24] MEDS: FLUTICASONE/VILANTEROL 100/25MCG 14 PUFFS/INHALER INH SCH (08:42)
[2021-07-24] MEDS: POLYETHYLENE (MIRALAX) 17 GM PACK PO SCH (08:46)
[2021-07-24] MEDS: GABAPENTIN 400 MG CAP PO SCH ×3 (08:46→20:08)
[2021-07-24] MEDS: AMOXICILLIN/CLAVULANATE 875 MG TAB PO SCH ×2 (08:47→15:58)
[2021-07-24] MEDS: THIAMINE HCL 100 MG TAB PO SCH ×2 (08:47→20:09)
[2021-07-24] MEDS: METOPROLOL TARTRATE 50 MG TAB PO SCH ×2 (08:47→20:07)
[2021-07-24] MEDS: FOLIC ACID 1 MG TAB PO SCH (08:47)
[2021-07-24] MEDS: MULTIVITAMIN TAB PO SCH (08:47)
[2021-07-24] MEDS: PANTOprazole 40 MG TAB PO SCH (08:48)
[2021-07-24] MEDS: VENLAFAXINE HCL XR 75 MG CAPXR PO SCH (08:48)
[2021-07-24] MEDS: DOCUSATE SODIUM/SENNA 50/8.6MG TAB PO SCH (08:48)
[2021-07-24] MEDS: lisinopril 10 MG TAB PO SCH (08:48)
[2021-07-24] MEDS: predniSONE 20 MG TAB PO SCH (08:48)
[2021-07-24] MEDS: CYANOCOBALAMIN (B-12) 500 MCG TABLET PO SCH (08:49)
[2021-07-24] MEDS: amLODIPine BESYLATE 5 MG TAB PO SCH (08:49)
[2021-07-24] MEDS: SUCRALFATE 1 GM/10 ML UDC PO SCH ×4 (08:50→20:11)
[2021-07-24] MEDS: NICOTINE 21 MG/24 HR TDSY TD SCH (08:50)
[2021-07-24] MEDS: ENOXAPARIN INJ 120 MG/0.8 ML SYR SQ SCH (08:58)
[2021-07-24] MEDS: cloNIDine HCL 0.1 MG TAB PO PRN (18:10)
[2021-07-24] MEDS: APIXABAN 5 MG TABLET PO SCH (20:06)
[2021-07-24] MEDS: OLANZapine 5 MG TABLET PO SCH (20:07)
[2021-07-24] MEDS: MIRTAZAPINE TAB 15 MG TAB PO SCH (20:10)
[2021-07-25] MEDS: MELATONIN 3 MG TAB PO PRN (00:40)
[2021-07-25] MEDS: LORazepam 1 MG TAB PO PRN ×2 (00:40→06:26)
[2021-07-25] MEDS: ALBUTEROL HFA 8 GM INHALER INH SCH (07:18)
[2021-07-25] MEDS: predniSONE 20 MG TAB PO SCH (07:38)
[2021-07-25] MEDS: APIXABAN 5 MG TABLET PO SCH (07:38)
[2021-07-25] MEDS: POLYETHYLENE (MIRALAX) 17 GM PACK PO SCH (07:38)
[2021-07-25] MEDS: THIAMINE HCL 100 MG TAB PO SCH (07:39)
[2021-07-25] MEDS: GABAPENTIN 400 MG CAP PO SCH (07:39)
[2021-07-25] MEDS: SUCRALFATE 1 GM/10 ML UDC PO SCH (07:39)
[2021-07-25] MEDS: lisinopril 10 MG TAB PO SCH (07:39)
[2021-07-25] MEDS: DOCUSATE SODIUM/SENNA 50/8.6MG TAB PO SCH (07:39)
[2021-07-25] MEDS: NICOTINE 21 MG/24 HR TDSY TD SCH (07:39)
[2021-07-25] MEDS: VENLAFAXINE HCL XR 75 MG CAPXR PO SCH (07:39)
[2021-07-25] MEDS: MULTIVITAMIN TAB PO SCH (07:39)
[2021-07-25] MEDS: METOPROLOL TARTRATE 50 MG TAB PO SCH (07:39)
[2021-07-25] MEDS: amLODIPine BESYLATE 5 MG TAB PO SCH (07:39)
[2021-07-25] MEDS: UMECLIDINIUM BROMIDE 62.5MCG/BLISTER 7 PUFFS/INHALER INH SCH (07:39)
[2021-07-25] MEDS: FOLIC ACID 1 MG TAB PO SCH (07:40)
[2021-07-25] MEDS: FLUTICASONE/VILANTEROL 100/25MCG 14 PUFFS/INHALER INH SCH (07:40)
[2021-07-25] MEDS: CYANOCOBALAMIN (B-12) 500 MCG TABLET PO SCH (07:40)
[2021-07-25] MEDS: PANTOprazole 40 MG TAB PO SCH (07:40)
[2021-07-25] MEDS: AMOXICILLIN/CLAVULANATE 875 MG TAB PO SCH (07:44)
[2021-07-25 08:21] LABS: Hematocrit (blood only) 38.5 % (42-52); Hemoglobin 12.9 g/dL (14.0-18.0); Mean Corpuscular Hemoglobin 31.5 pg (25-34); Mean Corpuscular Hgb Conc 33.5 g/dL (32-36); Mean Corpuscular Volume 93.9 fL (80-100); Mean Platelet Volume 9.1 fL (7.4-10.4); Platelet Count 287 K/uL (130-400); RDW Coefficient of Variation 14.2 % (11.5-14.5)
[2021-07-25 08:45] LABS: Creatinine Clr Calc Pharmacy 79.9 ml/min; Est GFR (African American) 71.6 ml/min; Est GFR (Non-African American) 61.8 ml/min
--- NOTE | 2021-07-25 17:08 | Discharge Summary ---
Date of Service July 25, 2021 Admission HPI Per Admitting Provider [place] is a 61-year-old male with history of prior DVT (~10/2020) on Eliquis, AUD and OUD (per [facility]), anxiety/depression, Montez's esophagus, chronic LBP who presented to [facility] for evaluation of right lower extremity swelling over the past 2 to 3 days. He also notes SOB on arrival. Patient is very pleasant; obtaining history was somewhat difficult. Patient reports that over the last 2 days, he has noticed progressively increasing swelling within his right lower extremity. This has been associated with a feeling of tightness and warmness. He denies any injury or falls. He says that he has been having mild shortness of breath since this time. Denies any chest pain or palpitations. Denies any nausea or vomiting. Does endorse a mild cough. Does endorse intermittent chills. Declines feeling sick otherwise. He endorses taking his Eliquis as prescribed without any missed doses (he notes that he takes it "religiously" and would never miss a dose). Of note, approximately 8 months ago patient was diagnosed with a right lower extremity DVT as well as PE. He was admitted briefly, where he received IV heparin and underwent (unconfirmed - based on patient's description) right lower extremity thrombectomy. He is currently at [facility] inpatient rehabilitation. He says that he has a rehab liaison history of chronic lower back pain following an accident when he was younger. For maintenance of his pain, he was previously being prescribed high doses of hydrocodone. Approx. 3 years ago, was changed to Suboxone. Approximately 1 month ago, he self discontinued Suboxone.. He reported wi thdrawal symptomsanxiety, feeling shaky, severe bout of anxiety. He attempted treating the symptoms with alcohol4-5 beers a day. Prior to this though, he denied regular drinking. At this point, last drink was approximately 1.5 to 2 weeks ago. He did report having suicidal ideations during this process. He was admitted to [facility] for further monitoring, treatment, and rehabilitation. He denies SI or HI at present. He is no longer on Suboxone. No personal or family history of clotting prior to the events in 10/2020, which - by report - seem unprovoked. In the ED, patient was found to be hemodynamically stable with blood pressure 170/100, pulse 102. Afebrile. Labs notable for anemia 12.5, INR 1, PTT 21.5, normal lytes/renal function. Doppler right lower extremity demonstrated "nonocclusive deep venous thrombosis within the right superficial femoral and popliteal veins. Although technically age-indeterminate, the appearance favors chronic thrombus." CTA chest, obtained for reports of subjective shortness of breath, did not demonstrate evidence of PE; however, did demonstrate diffuse peribronchial thickening suggestive of bronchitis/reactive airway disease, as well as a 12 mm simple pancreatic cystic lesion, likely physician relations representative of IPMN. He was given a single dose of morphine, as well as p.m. dose of Eliquis 5 mg Principal Diagnosis alcohol and opiate withdrawal acute on chronic rle DVT Discharge Exam pt was stable for discharge, awake and alert Discharge Data Allergies Allergy/AdvReac Type Severity Reaction Status Date / Time pregabalin [From Lyrica] Allergy Unknown Verified 07/19/21 03:45 Consultations 07/18/21 21:22 ED Decision to Admit Stat 07/19/21 08:56 Consult Health Information Management Stat 07/19/21 17:35 Consult Psychiatry Routine Ordered Studies 07/18/21 17:58 CT angio chest PE protocol Stat US venous doppler LE RT Stat 07/19/21 15:45 CT lumbar spine wo con Urgent 07/22/21 16:29 US gallbladder Routine Hospital Course (1) Alcohol withdrawal: Per documentation from [facility]Drug rehab his last documented drink was 07/13/21. Tremors now seem to be more of and essential tremor Cont gabapentin Appreciate psych consultation & recs from Dr Suero, Continue gabapentin 400mg TID, melatonin, zyprexa, mirtazapine and Effexor XR,increase Effexor XR to 75mg for anxiety also suggest possible propranolol for tremor, and they are signing off, will hold on additional medicine at this time as pt is on metoprolol (2) Opioid use disorder: Previous history of hydrocodone use for chronic LBP, followed by suboxone Rx for 4-5 years up until about 1-2 weeks ago. At that time he self-discontinued the suboxone abruptly. Avoiding narcotics at this time for any pain issues. , (3) Anxiety and depression: Continue venlafaxine ER 37.5mg daily Continue remeron in [place] of trazodone Continue Zyprexa 5mg daily (4) Degenerative lumbar spinal stenosis: CT lumbar spine with significant L4-L5 and L5-S1 disease which could be causing his foot numbness. spinal chord stimulator Gabapentin. Consider dose titration prednisone for bronchitis may also lessen sx some ankle pain checked ankle x-rays -- negative uric acid, sed rate, crp negative (5) Acute bronchitis: CT chest findings are c/w bronchitis on augmentin bronchodilators added symbicort, spiriva daily prednisone taper to off (6) Barretts esophagus: Cont daily PPI RUQ u/s -07/22 negative (7) HTN (hypertension): Continue lisinopril added metoprolol 25mg BID (8) DVT (deep venous thrombosis): h/o extensive RLE DVTs in 10/2020 per pt The current doppler of his RLE suggests the 2 DVTs are chronic - lovenox 1mg/kg SC BID since pt feels great improvement of leg swelling will discharge on therapeutic eilqis as 10 bid for one week then return to the 5 bid (9) Pancreatic cyst: CT Chest incidentally demonstrating "12 mm simple cystic lesion in the distal pancreas, 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" Will need f/u for such post when returns to pcp PT, OT evals Total Time Total Time Spent Total Time Spent (In Minutes): It required less than 30 minutes to prepare this patient for discharge Discharge Plan Discharge Items Patient Disposition: Drug & Alcohol Rehab Reason For Visit: DVT Discharge Diagnosis: leg swelling with acute on chronic DVT Condition on Discharge: Good Activity: Per Instructions section Activity Comment: wear support hose Non-emergency contact: Primary Care Provider Call non-emergency contact if: your symptoms worsen and you have a fever Follow-up/Referrals: PCP,NO [Primary Care Provider] - Diet: Low Sodium (2gm) Addtl Attending Provider Instructions: please wear your supportive stockings when walking and elevated your legs when resting For your blood clots, since you did improve with stronger anticoagulation medicine, please take 2 Eliquis 5mg twice a day for additional 6 days then downgrade to the 5mg one pill twice a day, this is the dose to treat a new blood clot. finish your antibiotics for bronchitis the psychiatrist did start some new medicines to try to help your mood Pending Studies at Discharge: No Stand-Alone Forms: My [employer], Smoking Cessation Skilled Items Patient informed of condition?: Yes DNR: No Discharge Level of Care: Other Communicable Disease: No Discharge Prognosis: Stable Lines: None Urinary Catheter: No Medications and DC Order Prescriptions: New Eliquis 5 mg Tablet 10 mg PO BID Qty: 24 RF: 0 metoprolol tartrate 50 mg Tablet 50 mg PO BID Qty: 60 RF: 0 mirtazapine 15 mg Tablet 15 mg PO HS Qty: 30 RF: 0 amoxicillin-pot clavulanate 875-125 mg tablet 1 tab PO BID Qty: 10 RF: 0 Continued thiamine HCl (vitamin B1) 100 mg tablet 100 mg PO DAILY RF: 0 multivitamin Tablet 1 tab PO DAILY RF: 0 venlafaxine 37.5 mg capsule,extended release 24hr 37.5 mg PO DAILY RF: 0 clonidine HCl 0.1 mg tablet 0.1 mg PO TID PRN (Reason: Anxiety) RF: 0 gabapentin 400 mg capsule 400 mg PO TID RF: 0 olanzapine 5 mg tablet 5 mg PO DAILY RF: 0 cyanocobalamin (vitamin B-12) 1,000 mcg tablet 1,000 mcg PO DAILY RF: 0 hydroxyzine pamoate 50 mg capsule 50 mg PO TID PRN (Reason: Anxiety) RF: 0 amlodipine 5 mg tablet 5 mg PO DAILY RF: 0 lisinopril 10 mg tablet 10 mg PO DAILY RF: 0 omeprazole 20 mg capsule,delayed release(DR/EC) 20 mg PO DAILY RF: 0 folic acid 1 mg tablet 1 mg PO DAILY RF: 0 diazepam 5 mg tablet See Rx Instructions .ROUTE .COMPLEX RF: 0 Eliquis 5 mg tablet 5 mg PO BID RF: 0 nicotine 14 mg/24 hr patch 24 hour 14 mg transdermal DAILY PRN (Reason: Smoking Cessation) RF: 0 trazodone 100 mg tablet 100 mg PO HS PRN (Reason: Insomnia) RF: 0 diphenhydramine HCl [Benadryl] 25 mg Capsule 25 mg PO Q6H PRN (Reason: itching or insomnia) RF: 0 albuterol sulfate 90 mcg/actuation HFA aerosol inhaler 2 puff INHALATION Q4H PRN (Reason: Shortness Of Breath Or Wheezing) RF: 0 melatonin 5 mg Tablet 5 mg PO HS PRN (Reason: Insomnia) RF: 0 Discharge Orders: Discharge Order (Routine); Ordered 07/25/21 Ordered By: Aamir Gerard Admission Data Admit Date/Time: 07/19/21 18:02 Attending Provider: Aamir Gerard Admit Provider: Celestine Minor Primary Care Provider: PCP,NO Other Providers: Celestine Minor ; Frieda Suero ; Anna Rankin ; Johanny Rebollar Other Interventions: Discharge Summary Assessment (RN) Last Done: 07/25/21 07:46 Coding Level of Care Code D/C DAY MANAGEMENT <30 MINS Diagnoses Alcohol withdrawal F10.239 Opioid use disorder F11.90 Anxiety and depression F41.9; F32.A Degenerative lumbar spinal stenosis M48.061 Acute bronchitis J20.9 Barretts esophagus K22.70 HTN (hypertension) I10 DVT (deep venous thrombosis) I82.409 Pancreatic cyst K86.2
== END 2021-07-25 09:46 | disposition alcohol treatment (31) | DRG 299 ==
LOC: ED 17:15 → 3W 17:15 → SUATTDRO 22:28 → 3W 22:53 → 2S 07-19 17:04 → SUATTDRO 07-19 18:02